=== PATIENT | male | born 1935 | race American Indian/Alaskan Native ===

== ENCOUNTER 2018-04-04 08:08 | Inpatient (IN) | payer MEDICARE, OTHER ==
[2018-04-04] MEDS ORDERED: Sodium Chloride 0.9% 1,000 ML IV STA (08:32)
--- NOTE | 2018-04-04 08:36 | ED PDOC ---
Arrival/HPI - General Chief Complaint: GI Problem Time Seen by Provider: 04/04/18 08:27 Historian: Patient, [facility] - History of Present Illness Narrative History of Present Illness (Text): 04/04/18 08:29 83 year old male, whose PMH includes hypertension, atrial fibrilallation, and CVA (with right sided weakness), who presents to the emergency department for further evaluation on possible GI bleed. According to nurse Alem Haque from [facility], patient is a new resident that recently got d/c from hospital and noted patient to have copious vomiting x2 episodes of coffee ground-like emesis last night. The GI bleed was questionable by patient's relatives and they decided to transfer patient to [facility] for further eval. Patient states having mid- epigastric discomfort with unknown time frame. Patient denies fever, shortness of breath, chest pain, chills, urinary/bowel changes, or trauma. pt is here for further eval pt's without other complaints. PMD: Dr. Houston/[facility] ([facility]) Time/Duration: > week Symptom Onset: Gradual Symptom Course: Unchanged Activities at Onset: Rest Context: Home ([facility] resident) Past Medical History - Provider Review Nursing Documentation Reviewed: Yes - Travel History Have you recently traveled outside [place] w/in the past 3 mons?: No - Past History Past History: No Previous - Infectious Disease Hx of Infectious Diseases: None - Cardiac Hx Atrial Fibrillation: Yes Hx Hypertension: Yes - Neurological HX Cerebrovascular Accident: Yes - Psychiatric Hx Substance Use: No Family/Social History - Physician Review Nursing Documentation Reviewed: Yes Family/Social History: Unknown Family HX Smoking Status: Never Smoked Hx Alcohol Use: No Hx Substance Use: No Hx Substance Use Treatment: No Allergies/Home Meds Allergies/Adverse Reactions: Allergies No Known Allergies Allergy (Unverified 04/04/18 08:32) Home Medications: Home Meds Medication Instructions Recorded Confirmed Acetaminophen [Tylenol 325mg tab] 650 mg PO Q4 PRN 04/04/18 04/04/18 Apixaban [Eliquis] 2.5 mg PO DAILY 04/04/18 04/04/18 Aspirin [Aspirin Chewable] 81 mg PO DAILY 04/04/18 04/04/18 Atorvastatin [Lipitor] 40 mg PO DAILY 04/04/18 04/04/18 Clopidogrel [Plavix] 75 mg PO DAILY 04/04/18 04/04/18 Digoxin [Digitek] 125 mcg PO DAILY 04/04/18 04/04/18 Dutasteride [Avodart] 0.5 mg PO DAILY 04/04/18 04/04/18 Pantoprazole [Protonix Inj] 40 mg PO DAILY 04/04/18 04/04/18 Tamsulosin [Flomax] 0.4 mg PO DAILY 04/04/18 04/04/18 diltiaZEM [Cardizem] 60 mg PO DAILY 04/04/18 04/04/18 Review of Systems - Physician Review All systems were reviewed & negative as marked: Yes - Review of Systems Constitutional: absent: Fevers Eyes: Normal ENT: Normal Respiratory: absent: SOB Cardiovascular: absent: Chest Pain Gastrointestinal: Abdominal Pain (mid epigastric discomfort ), Nausea, Vomiting , Appetite Changes, Hematemesis Genitourinary Male: Normal Musculoskeletal: Normal Skin: Normal Neurological: Dizziness Endocrine: Normal Hemo/Lymphatic: Normal Psychiatric: Normal Physical Exam - Physical Exam Narrative Physical Exam (Text): 04/04/18 General: alert/awake, GCS = 15, oriented x 2 (not to date/time), resting in bed , uncomfortable, cooperative, interactive Head: NC/AT; mild bi-temporal wasting EYE: PERRLA, EOMI, sclera anicteric, no nystagmus, no photophobia Facial: WNL Oral: uvula/tongue are midline, no exudate/lesions, no drooling/stridor, no dysphonia; poor dentitions NECK: intact ROM, no midline tenderness, no nuchal rigidity, no meningeal signs Chest: CTA b/l, no w/r/r; no tachypenia, no accessory muscle use noted Cardiac: +S1, +S2, no m/r/r Abdominal: +decr BS, soft, mild diffuse lower abd distention/tenderness; mild diffuse epigastric tenderness, well nourished patient; no masses/rebound/ guarding/rigidity; no grullon's sign, no mcburney's point tenderness Rectal: no external hemorrhoids, no gross blood, No occult blood, GUAIC negative ext: intact ROM, strength 5-/5 grossly intact in all limbs, neurovasc intact b/l SKIN: cap refill < 1 sec, no ulcerations, no petechiae, no rashes NEURO: CNII-XII WNL, + slurr speech (prior CVA), oriented x 2 (not to date/time ) Psych: normal insight, normal affect Vital Signs Reviewed: Yes Vital Signs Temp Pulse Resp BP Pulse Ox 04/04/18 11:33 98.3 F 88 18 132/79 99 04/04/18 08:13 98.1 F 91 H 16 135/64 95 Temperature: Afebrile Blood Pressure: Normal Pulse: Regular Respiratory Rate: Normal Appearance: Positive for: Well-Appearing, Non-Toxic, Comfortable Pain Distress: None - Systems Exam Head: Present: Atraumatic, Normocephalic, Other (mild bi-temporal wasting) Medical Decision Making ED Course and Treatment: 04/04/18 Impression: coffee ground emesis, nausea/vomiting, epigastric pain 83 year old male with mid-epigastric discomfort and x2 episodes of ground coffee emesis Plan: -- Labs -- Chest X-ray -- Urinalysis -- Protonix, Zofran, and Sodium Chloride -- Reassess and disposition Progress Notes: pt is currently resting in bed, NAD + intermittent nausea and epigastric pain complaints [address] Atkinson, no reply, will attempt to contact her again 04/04/18 11:25 pt's son is at bedside made aware of pt's medical results agrees with admission Dr Atkinson is contacted, made aware, agrees with admission, would like to consult Dr Heaton for GI 1135 Dr Atkinson is currently at pt bedside Dr Atkinson recommended CT with PO contrast for the patient 04/04/18 13:32 pt can not tolerate liquids (due to prior CVA) will change CT order to include IV Re-evaluation Time: 11:34 Reassessment Condition: Improving,but remains with symptoms - Lab Interpretations Lab Results: 04/04/18 08:57 04/04/18 08:57 Lab Results 04/04/18 08:57: pO2 91 H, VBG pH 7.37, VBG pCO2 41.0, VBG HCO3 23.7, VBG Total CO2 25.0, VBG O2 Sat (Calc) 98.6 H, VBG Base Excess -1.5 L, VBG Potassium 5.5 H , Sodium 133.0, Chloride 102.0, Glucose 123 H, Lactate 1.8, FiO2 21.0, Venous Blood Potassium 5.5 H 04/04/18 08:57: Sodium 140, Chloride 103, Potassium 5.3 H, Carbon Dioxide 22, Anion Gap 20, BUN 29 H, Creatinine 1.9 H, Est GFR ( Amer) 41, Est GFR ( Non-Af Amer) 34, Random Glucose 119 H, Calcium 9.6, Magnesium 2.2, Total Bilirubin 0.6, AST 27, ALT 32, Alkaline Phosphatase 70, Total Protein 7.7, Albumin 4.3, Globulin 3.4, Albumin/Globulin Ratio 1.3, Lipase 52 04/04/18 08:57: PT 15.1 H, INR 1.31 H, APTT 21.4 L 04/04/18 08:57: WBC 10.0, RBC 4.65, Hgb 13.1 L, Hct 39.3 L, MCV 84.5, MCH 28.2, MCHC 33.3, RDW 13.6, Plt Count 351, MPV 9.5, Gran % 79.0 H, Lymph % (Auto) 7.5 L , [place] % (Auto) 13.1 H, Eos % (Auto) 0.3 L, Baso % (Auto) 0.1, Gran # 7.86 H, Lymph # (Auto) 0.8 L, [place] # (Auto) 1.3 H, Eos # (Auto) 0.0, Baso # (Auto) 0.01 04/04/18 08:30: Blood Type B POSITIVE, Antibody Screen Negative, BBK History Checked No verified bt I have reviewed the lab results: Yes Interpretation: Abnormal lab values (elevated creat, slightly elevated K) - RAD Interpretation Narrative RAD Interpretations (Text): 04/04/18 10:00 Chest X-ray: Creator : Pato Mills MD FINDINGS: LUNGS: No active pulmonary disease. PLEURA: No significant pleural effusion identified, no pneumothorax apparent. CARDIOVASCULAR: Mild cardiomegaly OSSEOUS STRUCTURES: No significant abnormalities. VISUALIZED UPPER ABDOMEN: Normal. OTHER FINDINGS: None. IMPRESSION: No active disease. 04/04/18 14:28 PROCEDURE: CT Abdomen and Pelvis with contrast HISTORY: mid abd pain COMPARISON: None. TECHNIQUE: Contrast dose: 150 cc of Visipaque Radiation dose: Total exam DLP = 906 mGy-cm. This CT exam was performed using one or more of the following dose reduction techniques: Automated exposure control, adjustment of the mA and/or kV according to patient size, and/or use of iterative reconstruction technique. 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 LIVER: Unremarkable. No gross lesion or ductal dilatation. GALLBLADDER AND BILE DUCTS: Unremarkable. PANCREAS: Unremarkable. No gross lesion or ductal dilatation. SPLEEN: Unremarkable. ADRENALS: Unremarkable. No mass. KIDNEYS AND URETERS: Unremarkable. No hydronephrosis. No solid mass. VASCULATURE: Unremarkable. No aortic aneurysm. BOWEL: Unremarkable. No obstruction. No gross mural thickening. APPENDIX: Normal appendix. PERITONEUM: Unremarkable. No free fluid. No free air. LYMPH NODES: Unremarkable. No enlarged lymph nodes. BLADDER: The bladder is distended. The bladder extends of to the level of the iliac crests REPRODUCTIVE: Unremarkable. BONES: No acute fracture. OTHER FINDINGS: None. IMPRESSION: No acute findings. Distention of the bladder Radiology Orders: 04/04/18 08:34 CHEST PORTABLE [RAD] Stat Machine Container Washer: Radiologist - EKG Interpretation EKG Interpretation (Text): 04/04/18 11:40 Atrial fib at 105 bpm, normal axis, no ectopy, inverted T in leads I, L, V3-6, no st changes, ABNL EKG; no old ekg to compare with Interpreted by ED Physician: Yes Type: 12 lead EKG Comparison: No previous EKG avail. - Medication Orders Current Medication Orders: Sodium Chloride (Sodium Chloride 0.9%) 1,000 mls @ 100 mls/hr IV .Q10H STA Stop: 04/04/18 18:31 Last Admin: 04/04/18 09:55 Dose: 100 mls/hr eMAR Start Stop Document 04/04/18 09:55 EWO (Rec: 04/04/18 09:55 [id number] Intravenous Solution Start Date 04/04/18 Start Time 09:55 Discontinued Medications Ondansetron HCl (Zofran Inj) 4 mg IVP STAT STA Stop: 04/04/18 08:33 Last Admin: 04/04/18 09:55 Dose: 4 mg IVP Administration Document 04/04/18 09:55 EWO (Rec: 04/04/18 09:55 [facility]-[id number]) Charges for Administration # of IVP Administrations 1 Pantoprazole Sodium (Protonix Inj) 40 mg IVP STAT STA Stop: 04/04/18 08:33 Last Admin: 04/04/18 09:55 Dose: 40 mg IVP Administration Document 04/04/18 09:55 [facility] (Rec: 04/04/18 09:55 [facility]-[id number]) Charges for Administration # of IVP Administrations 1 - Scribe Statement The provider has reviewed the documentation as recorded by the Scribe Marah Chaparro Provider Scribe Attestation: All medical record entries made by the Scribe were at my direction and personally dictated by me. I have reviewed the chart and agree that the record accurately reflects my personal performance of the history, physical exam, medical decision making, and the department course for this patient. I have also personally directed, reviewed, and agree with the discharge instructions and disposition. Disposition/Present on Arrival - Present on Arrival Any Indicators Present on Arrival: No History of DVT/PE: No History of Uncontrolled Diabetes: No Urinary Catheter: No History of Decub. Ulcer: No History Surgical Site Infection Following: None - Disposition Have Diagnosis and Disposition been Completed?: Yes Diagnosis: Epigastric pain, Nausea and vomiting, Weakness, Renal insufficiency, GI bleed, Urinary retention Disposition: HOSPITALIZED Disposition Time: 11:30 Patient Plan: Admission Patient Problems: Current Active Problems Problem Status Onset Epigastric pain Acute Nausea and vomiting Acute Weakness Acute Renal insufficiency Acute GI bleed Acute Condition: STABLE
[2018-04-04 09:07] LABS: VENOUS BLOOD GAS BASE EXCESS -1.5 mmol/L (0.0-2.0); VENOUS BLOOD GAS PO2 91 mm/Hg (30-55); VENOUS BLOOD PH 7.37 (7.32-7.43)
[2018-04-04 09:14] LABS: ALB/GLOB RATIO 1.3 (1.1-1.8); ALBUMIN 4.3 g/dL (3.0-4.8); CALCIUM 9.6 mg/dL (8.4-10.5)
[2018-04-04 09:15] LABS: BASO # 0.01 K/mm3 (0.0-2.0); BASO % 0.1 % (0.0-3.0); EOS % 0.3 % (1.5-5.0); GRAN # 7.86 (1.4-6.5); HEMOGLOBIN 13.1 g/dL (14.0-18.0); LYMPH # 0.8 (1.2-3.4); LYMPH % 7.5 % (22.0-35.0); MEAN CELL VOLUME 84.5 fl (80.0-105.0); MEAN CORPUSCULAR HEMOGLOBIN 28.2 pg (25.0-35.0); MEAN CORPUSCULAR HGB CONC 33.3 g/dl (31.0-37.0); MEAN PLATELET VOLUME 9.5 fl (7.0-11.0); MONO # 1.3 (0.1-0.6); MONO % 13.1 % (1.0-6.0); RBC 4.65 10^6/uL (3.5-6.1); RED CELL DISTRIBUTION WIDTH 13.6 % (11.5-14.5)
[2018-04-04 09:23] LABS: INR 1.31 (0.93-1.08); PARTIAL THROMBOPLASTIN TIME 21.4 Seconds (25.1-36.5); PROTHROMBIN TIME 15.1 SECONDS (9.4-12.5)
--- NOTE | 2018-04-04 09:54 | RAD ---
HISTORY: epigastric pain, vomiting COMPARISON: No prior. FINDINGS: LUNGS: No active pulmonary disease. PLEURA: No significant pleural effusion identified, no pneumothorax apparent. CARDIOVASCULAR: Mild cardiomegaly OSSEOUS STRUCTURES: No significant abnormalities. VISUALIZED UPPER ABDOMEN: Normal. OTHER FINDINGS: None. IMPRESSION: No active disease.
[2018-04-04] MEDS ORDERED: Iohexol 240 (50 ml) ONE (11:52)
[2018-04-04] MEDS ORDERED: Iodixanol 320 MG/ML 100 ML BOTTLE IV ONE (13:37)
--- NOTE | 2018-04-04 14:22 | CT ---
PROCEDURE: CT Abdomen and Pelvis with contrast HISTORY: mid abd pain COMPARISON: None. TECHNIQUE: Contrast dose: 150 cc of Visipaque Radiation dose: Total exam DLP = 906 mGy-cm. This CT exam was performed using one or more of the following dose reduction techniques: Automated exposure control, adjustment of the mA and/or kV according to patient size, and/or use of iterative reconstruction technique. 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 LIVER: Unremarkable. No gross lesion or ductal dilatation. GALLBLADDER AND BILE DUCTS: Unremarkable. PANCREAS: Unremarkable. No gross lesion or ductal dilatation. SPLEEN: Unremarkable. ADRENALS: Unremarkable. No mass. KIDNEYS AND URETERS: Unremarkable. No hydronephrosis. No solid mass. VASCULATURE: Unremarkable. No aortic aneurysm. BOWEL: Unremarkable. No obstruction. No gross mural thickening. APPENDIX: Normal appendix. PERITONEUM: Unremarkable. No free fluid. No free air. LYMPH NODES: Unremarkable. No enlarged lymph nodes. BLADDER: The bladder is distended. The bladder extends of to the level of the iliac crests REPRODUCTIVE: Unremarkable. BONES: No acute fracture. OTHER FINDINGS: None. IMPRESSION: No acute findings. Distention of the bladder
[2018-04-04 16:23] LABS: ARTERIAL BLOOD GAS HCO3 22.3 mmol/L (21-28); ARTERIAL BLOOD GAS O2 SAT 98.7 % (95-98); ARTERIAL BLOOD GAS PCO2 36 mm/Hg (35-45); ARTERIAL BLOOD GAS TCO2 23.4 mmol.L (22-28)
--- NOTE | 2018-04-04 16:47 | PCM.RRT ---
<Kendrick Worley - Last Filed: 04/04/18 16:42> ELEVATOR SERVICE TECHNICIAN Nurse Assessment - Situation Date: 04/04/18 Time ELEVATOR SERVICE TECHNICIAN was called: 16:02 ELEVATOR SERVICE TECHNICIAN Responder Arrival Time: 16:02 ELEVATOR SERVICE TECHNICIAN Location:: [address] [place] [address] Room Number: [id number] ELEVATOR SERVICE TECHNICIAN Reason for Call: Change in Mental Status ELEVATOR SERVICE TECHNICIAN Called By: RN - IV IV Inserted during ELEVATOR SERVICE TECHNICIAN?: No - Respiratory Oxygen Delivery Method: Room Air Received Nebulizer Treatments:: No Was the Patient Ventilated with Bag/Mask 100% O2?: No Secretions Suctioned?: No Was the Patient Intubated?: No Was the Patient Placed on a Ventilator?: No - Medication Medications Administered During ELEVATOR SERVICE TECHNICIAN: none - Diagnostic Test Ordered EKG: Yes CT Scan: Yes - Stat Labs Ordered ELEVATOR SERVICE TECHNICIAN Stat Labs Ordered: BMP, ABG CPR started during ELEVATOR SERVICE TECHNICIAN?: No - Evin Coma Scale Coma Scale Eye Opening: Spontaneous Coma Scale Motor: Obeys Commands Movement Coma Scale Verbal: Oriented - Time ELEVATOR SERVICE TECHNICIAN Ended Time ELEVATOR SERVICE TECHNICIAN Ended: 16:30 - Recommendations 5) ELEVATOR SERVICE TECHNICIAN Level of Care Recommendations: Transfer to Telemetry Notifications: Attending Physician, Consultations, Family or Designated Caregiver I.Reason for ELEVATOR SERVICE TECHNICIAN - A) Acute Change in Patient: (Select all that apply): Acute change in mental status Subjective: Upon receiving the patient from the ED the nurse states the patient was not respinding to her. When i came to the room with sternal rub the patient was responding and was able to follow commands. He was confused however. EKG at this time showed afib and possible dig tox. Dig level was ordered.ABG was done. Co2 and O2 as well as Ph was normal. Bmp was ordered as patient had slightly elevated K+ on admission. CT head was ordered. Patient transferred to tele. Vitals were stable the entire time. PMD as well as family were notified. <Modesta Greenfield - Last Filed: 04/05/18 16:08> ELEVATOR SERVICE TECHNICIAN Nurse Assessment - Vital Signs Vital Sign: Rapid Response Vital Sign Blood Pressure 131/73 Pulse Rate 99 Respiratory Rate 18 Temperature 98.2 F Oxygen Saturation 99 Attending/Attestation - Attestation I have personally seen and examined this patient.: Yes I have fully participated in the care of the patient.: Yes I have reviewed all pertinent clinical information, including history, physical exam and plan: Yes Notes (Text): 04/05/18 16:05 Patient was seen and examined with medical equipment sales . 83M with PMH of BPH that presented to ER from [place] for hematemsis was seen as he was found to be unresponsive.Patient is drowsy, able to follow verbal command.He is maintaining air way, and blood pressure is stable.he is not hypoglycemic or hypercapnic.We will get CT scan of head and will transfer patient to telemetry.We will monitor Neuro check.PMD has been informed by medical equipment sales
--- NOTE | 2018-04-04 16:52 | CARD ---
APPROVED REPORT EKG Measurement Heart [id number] <Conclusion> Atrial fibrillation with rapid ventricular response T wave abnormality, consider inferior ischemia or digitalis effect T wave abnormality, consider anterolateral ischemia or digitalis effect Abnormal ECG
--- NOTE | 2018-04-04 17:43 | CT ---
PROCEDURE: CT HEAD WITHOUT CONTRAST. HISTORY: Altered mental status. COMPARISON: None available. TECHNIQUE: Axial computed tomography images were obtained through the head/brain without intravenous contrast. Coronal and sagittal reconstructed images. Radiation dose: Total exam DLP = 816.55 mGy-cm. This CT exam was performed using one or more of the following dose reduction techniques: Automated exposure control, adjustment of the mA and/or kV according to patient size, and/or use of iterative reconstruction technique. FINDINGS: HEMORRHAGE: No intracranial hemorrhage. BRAIN: No mass effect or edema. Cortical and cerebellar atrophy, periventricular small vessel disease. This includes the wedge-shaped geographic defect in the left cerebellar hemisphere the sequela of prior cerebellar infarction. In addition multiple small lacunar infarcts bilaterally VENTRICLES: Unremarkable. No hydrocephalus. CALVARIUM: Unremarkable. PARANASAL SINUSES: Unremarkable as visualized. No significant inflammatory changes. MASTOID AIR CELLS: Unremarkable as visualized. No inflammatory changes. OTHER FINDINGS: None. IMPRESSION: No acute intracranial abnormalities. No significant findings to account for the clinical presentation. Additional benign and/or incidental findings described above.
[2018-04-04 17:49] LABS: CALCIUM 9.2 mg/dL (8.4-10.5)
[2018-04-04] MEDS ORDERED: Albuterol-Ipratrop 3 mg / 0.5 (3 ml) UD IH STA (17:53)
[2018-04-04] MEDS ORDERED: Dextrose 50% SYRINGE Inj (50 ml) IVP ONE (17:55)
[2018-04-04 17:56] VITALS: BMI 27.7
[2018-04-04] MEDS ORDERED: Insulin Regular 1 UNITS/0.01 ML ML IV ONE (17:57)
[2018-04-04] MEDS ORDERED: Pneumococcal 23-Valent Vaccine IM ONE (18:02)
--- NOTE | 2018-04-04 19:34 | CP.PCM.CON ---
<Oriana Rivera - Last Filed: 04/04/18 19:34> History of Present Illness - History of Present Illness History of Present Illness: Seen and examined at the bedside earlier this afternoon, chart reviewed. Request for GI consult is for GI bleed. HPI: This is a 83-year-old male from [facility], who has a past medical history of atrial fibrillation, CVA and hypertension. The patient was brought to the emergency room from [facility] for reports of vomiting coffee ground like emesis last night 2. The patient is easily arousable but is a poor historian he does complain of epigastric pain and nausea as per ER nurse no episodes of melena or further hematemesis. Patient had stool guaiac done which was negative. No reports of any fever, shortness of breath chest pains. As far as patient recalls he never had an endoscopy or colonoscopy. History obtained also obtained from medical chart and team. In review of medications patient is on aspirin, Eliquis,and Plavix. As per nursing patient is on a thick liquids. Past medical history: Hypertension, atrial fibrillation, CVA with right-sided weakness which Surgical history: Denies Allergies: No known drug allergies Social history: No history of smoking, EtOH or illicit drugs Family history: Unknown Medications: Reviewed as per list from long term significant for aspirin/ Eliquis/Plavix ROS: Systems reviewed with positive finding see HPI Past Patient History - Infectious Disease Hx of Infectious Diseases: None - Past Social History Smoking Status: Never Smoked - CARDIAC Hx Atrial Fibrillation: Yes Hx Hypertension: Yes - NEUROLOGICAL HX Cerebrovascular Accident: Yes - PSYCHIATRIC Hx Substance Use: No - SURGICAL HISTORY Hx Surgeries: No Meds Allergies/Adverse Reactions: Allergies Allergy/AdvReac Type Severity Reaction Status Date / Time No Known Allergies Allergy Unverified 04/04/18 08:32 - Medications Medications: Current Medications Sodium Chloride (Sodium Chloride 0.9%) 1,000 mls @ 100 mls/hr IV .Q10H STA Stop: 04/04/18 18:31 Last Admin: 04/04/18 09:55 Dose: 100 mls/hr Physical Exam - Constitutional Appears: No Acute Distress - Head Exam Head Exam: NORMOCEPHALIC - Eye Exam Eye Exam: Normal appearance. absent: Scleral icterus - ENT Exam ENT Exam: Mucous Membranes Moist - Neck Exam Neck exam: Positive for: Normal Inspection - Respiratory Exam Respiratory Exam: Decreased Breath Sounds, NORMAL BREATHING PATTERN. absent: Rales, Wheezes, Respiratory Distress - Cardiovascular Exam Cardiovascular Exam: +S1, +S2 - GI/Abdominal Exam GI & Abdominal Exam: Distended, Normal Bowel Sounds, Soft, Tenderness ( epigastric). absent: Guarding, Rebound - Extremities Exam Extremities exam: Positive for: pedal pulses present. 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 minimal weakness noted to right arm - Neurological Exam Neurological exam: Alert (easily arousable and aware of surroundings, not much of a historian) Results - Vital Signs Recent Vital Signs: Last Vital Signs Temp 98.6 F 04/04/18 13:06 Pulse 88 04/04/18 13:06 Resp 18 04/04/18 13:06 BP 134/89 04/04/18 13:06 Pulse Ox 97 04/04/18 13:06 - Labs Result Diagrams: 04/04/18 08:57 04/04/18 17:21 Assessment & Plan - Assessment and Plan (Free Text) Assessment: Assessment: Coffee ground emesis, differentials consider is peptic ulcer disease, angiodysplasia CVA with right-sided weakness Atrial fibrillation Hypertension Hyperkalemia Plan: Nothing by mouth, continue IVF continue Protonix IV daily CT scan of abdomen and pelvis, report was reviewed, no acute findings Trend H&H and monitor for GI bleed Patient may benefit from EGD when optimal,patient on Elquis/Plavix. Will monitor closely. Thank you for this consult and for allowing us to participate in your patient's care, further recommendations based upon clinical course. Seen and discussed with Dr. Heaton. <Clark Heaton V - Last Filed: 04/05/18 02:42> Meds - Medications Medications: Current Medications Albuterol/Ipratropium (Duoneb 3 Mg/0.5 Mg (3 Ml) Ud) 3 ml IH [id number] [facility] Last Admin: 04/04/18 21:00 Dose: 3 ml Bisacodyl (Dulcolax) 10 mg RC ONCE ONE Stop: 04/05/18 07:12 Docusate Sodium (Colace) 100 mg PO BID [facility] Dextrose/Sodium Chloride (Dextrose 5%/0.45% Ns 1000 Ml) 1,000 mls @ 100 mls/hr IV .Q10H [facility] Last Admin: 04/04/18 19:37 Dose: 100 mls/hr Pantoprazole Sodium (Protonix Inj) 40 mg IVP DAILY [facility] Results - Vital Signs Recent Vital Signs: Last Vital Signs Temp 98.0 F 04/05/18 00:01 Pulse 108 H 04/05/18 00:01 Resp 20 04/05/18 00:01 BP 130/73 04/05/18 00:01 Pulse Ox 99 04/04/18 19:00 - Labs Result Diagrams: 04/04/18 19:35 04/04/18 19:35 Labs: Laboratory Results - last 24 hr 04/04/18 04/04/18 04/04/18 16:05 16:15 17:21 WBC RBC Hgb Hct MCV MCH MCHC RDW Plt Count MPV Gran % Lymph % (Auto) [place] % (Auto) Eos % (Auto) Baso % (Auto) Gran # Lymph # (Auto) [place] # (Auto) Eos # (Auto) Baso # (Auto) pCO2 36 pO2 84.0 HCO3 22.3 ABG pH 7.40 ABG Total CO2 23.4 ABG O2 Saturation 98.7 H ABG Base Excess -2.1 L ABG Potassium 4.9 Sodium 134.0 Chloride 107.0 Glucose 99 Lactate 0.8 FiO2 21.0 Potassium Carbon Dioxide Anion Gap BUN Creatinine Est GFR ( Amer) Est GFR (Non-Af Amer) POC Glucose (mg/dL) 110 Random Glucose Calcium Total Bilirubin AST ALT Alkaline Phosphatase Total Protein Albumin Globulin Albumin/Globulin Ratio Arterial Blood Potassium 4.9 Digoxin Blood Type Confirm B POSITIVE 04/04/18 04/04/18 04/04/18 17:21 17:21 19:35 WBC 8.9 RBC 4.31 Hgb 12.1 L Hct 37.0 L MCV 85.8 MCH 28.1 MCHC 32.7 RDW 13.8 Plt Count 298 MPV 9.3 Gran % 70.1 H Lymph % (Auto) 13.8 L [place] % (Auto) 15.3 H Eos % (Auto) 0.7 L Baso % (Auto) 0.1 Gran # 6.22 Lymph # (Auto) 1.2 [place] # (Auto) 1.4 H Eos # (Auto) 0.1 Baso # (Auto) 0.01 pCO2 pO2 HCO3 ABG pH ABG Total CO2 ABG O2 Saturation ABG Base Excess ABG Potassium Sodium 140 Chloride 104 Glucose Lactate FiO2 Potassium 5.7 H* Carbon Dioxide 25 Anion Gap 17 BUN 35 H Creatinine 2.5 H Est GFR ( Amer) 30 Est GFR (Non-Af Amer) 25 POC Glucose (mg/dL) Random Glucose 95 Calcium 9.2 Total Bilirubin AST ALT Alkaline Phosphatase Total Protein Albumin Globulin Albumin/Globulin Ratio Arterial Blood Potassium Digoxin 1.1 Blood Type Confirm 04/04/18 19:35 WBC RBC Hgb Hct MCV MCH MCHC RDW Plt Count MPV Gran % Lymph % (Auto) [place] % (Auto) Eos % (Auto) Baso % (Auto) Gran # Lymph # (Auto) [place] # (Auto) Eos # (Auto) Baso # (Auto) pCO2 pO2 HCO3 ABG pH ABG Total CO2 ABG O2 Saturation ABG Base Excess ABG Potassium Sodium 144 Chloride 106 Glucose Lactate FiO2 Potassium 4.2 Carbon Dioxide 24 Anion Gap 18 BUN 34 H Creatinine 2.4 H Est GFR ( Amer) 31 Est GFR (Non-Af Amer) 26 POC Glucose (mg/dL) Random Glucose 65 L Calcium 9.4 Total Bilirubin 0.7 AST 21 ALT 31 Alkaline Phosphatase 61 Total Protein 6.7 Albumin 3.7 Globulin 3.1 Albumin/Globulin Ratio 1.2 Arterial Blood Potassium Digoxin Blood Type Confirm Attending/Attestation - Attestation I have personally seen and examined this patient.: Yes I have fully participated in the care of the patient.: Yes I have reviewed all pertinent clinical information: Yes Notes (Text): maryanne 04/05/18 02:42
[2018-04-04] MEDS: Dextrose 5%/0.45% NS 1,000 ML IV SCH (19:37)
[2018-04-04 19:43] LABS: BASO # 0.01 K/mm3 (0.0-2.0); BASO % 0.1 % (0.0-3.0); EOS # 0.1 (0.0-0.7); EOS % 0.7 % (1.5-5.0); GRAN # 6.22 (1.4-6.5); GRAN % 70.1 % (50.0-68.0); HEMOGLOBIN 12.1 g/dL (14.0-18.0); LYMPH # 1.2 (1.2-3.4); LYMPH % 13.8 % (22.0-35.0); MEAN CELL VOLUME 85.8 fl (80.0-105.0); MEAN CORPUSCULAR HEMOGLOBIN 28.1 pg (25.0-35.0); MEAN CORPUSCULAR HGB CONC 32.7 g/dl (31.0-37.0); MEAN PLATELET VOLUME 9.3 fl (7.0-11.0); MONO # 1.4 (0.1-0.6); MONO % 15.3 % (1.0-6.0); RBC 4.31 10^6/uL (3.5-6.1); RED CELL DISTRIBUTION WIDTH 13.8 % (11.5-14.5); WHITE BLOOD COUNT 8.9 10^3/ul (4.5-11.0)
[2018-04-04 19:50] LABS: ALB/GLOB RATIO 1.2 (1.1-1.8); ALBUMIN 3.7 g/dL (3.0-4.8); CALCIUM 9.4 mg/dL (8.4-10.5)
--- NOTE | 2018-04-04 20:07 | CARD ---
APPROVED REPORT EKG Measurement Heart [id number] <Conclusion> Atrial fibrillation with rapid ventricular response T wave abnormality, consider inferior ischemia or digitalis effect T wave abnormality, consider anterolateral ischemia or digitalis effect Abnormal ECG
[2018-04-04] MEDS: Albuterol-Ipratrop 3 mg / 0.5 (3 ml) UD IH SCH (21:00)
--- NOTE | 2018-04-04 21:45 | CP.PCM.CON ---
<Thompson Cole - Last Filed: 04/04/18 21:41> History of Present Illness - History of Present Illness History of Present Illness: ICU Consult Note - Priyanka Cole PGY2 HPI: Patient is a 83 year-old male with past medical history of atrial fibrillation, CVA, hypertension that presented from [facility] with report of coffee-ground emesis for 2 nights prior to admission. Patient is a poor historian however arousable. On arrival to the ED, patient was noted to have a hemoglobin of 13.1, blood pressure of 135/64 and heart rate of 91bpm. Stool guiac was noted to be negative. During the day patient had a rapid response called due to altered mental status. An ABG was reviewed and revealed no abnormalities. Head CT was negative for acute intracranial abnormalities. Patient was subsequently transferred to telemetry for close monitoring. Patient had reportedly complained of epigastric pain and nausea. 12point ROS limited due to patient status PMH: as stated above PSH: denies Allergies: NKDA Family Hx: unknown Social Hx: no history of alcohol, tobacco or illicit drug use; lives in [facility] PMD: Dr. Atkinson Past Patient History - Infectious Disease Hx of Infectious Diseases: None - Past Social History Smoking Status: Never Smoked - CARDIAC Hx Atrial Fibrillation: Yes Hx Hypertension: Yes - PULMONARY Hx Respiratory Disorders: No - NEUROLOGICAL HX Cerebrovascular Accident: Yes - INTEGUMENTARY Hx Dermatological Problems: Yes Other/Comment: rle +1 pitting edema/ ble dry multiple discolorations to skin - MUSCULOSKELETAL/RHEUMATOLOGICAL Hx Falls: No - GASTROINTESTINAL Hx Gastroesophageal Reflux: Yes HX Swallowing Problems: Yes (can't tolerated liquids) Other/Comment: diet nectar/thickit - GENITOURINARY/GYNECOLOGICAL Hx Incontinence: Yes (urine and stool) Hx Prostate Problems: Yes (bph) - PSYCHIATRIC Hx Substance Use: No - SURGICAL HISTORY Hx Surgeries: No Meds Allergies/Adverse Reactions: Allergies Allergy/AdvReac Type Severity Reaction Status Date / Time No Known Allergies Allergy Unverified 04/04/18 08:32 - Medications Medications: Current Medications Albuterol/Ipratropium (Duoneb 3 Mg/0.5 Mg (3 Ml) Ud) 3 ml IH [id number] [facility] Last Admin: 04/04/18 21:00 Dose: 3 ml Dextrose/Sodium Chloride (Dextrose 5%/0.45% Ns 1000 Ml) 1,000 mls @ 100 mls/hr IV .Q10H [facility] Last Admin: 04/04/18 19:37 Dose: 100 mls/hr Pantoprazole Sodium (Protonix Inj) 40 mg IVP DAILY [facility] Physical Exam - Constitutional Appears: No Acute Distress - Head Exam Head Exam: ATRAUMATIC, NORMOCEPHALIC - Eye Exam Eye Exam: EOMI, PERRL - ENT Exam ENT Exam: Mucous Membranes Moist - Respiratory Exam Respiratory Exam: Decreased Breath Sounds. absent: Rales, Rhonchi, Wheezes - Cardiovascular Exam Cardiovascular Exam: Irregular Rhythm, +S1, +S2. absent: Gallop, JVD, Rubs - GI/Abdominal Exam GI & Abdominal Exam: Soft. absent: Distended, Firm, Guarding, Rigid, Tenderness - Extremities Exam Extremities exam: Positive for: normal inspection. Negative for: tenderness - Neurological Exam Additional comments: arousable; oriented x2 - Skin Skin Exam: Dry, Intact, Normal Color, Warm Results - Vital Signs Recent Vital Signs: Last Vital Signs Temp 98.7 F 04/04/18 19:00 Pulse 63 04/04/18 19:00 Resp 16 04/04/18 19:00 BP 141/74 04/04/18 19:00 Pulse Ox 99 04/04/18 19:00 - Labs Result Diagrams: 04/04/18 19:35 04/04/18 19:35 Labs: Laboratory Results - last 24 hr 04/04/18 04/04/18 04/04/18 16:05 16:15 17:21 WBC RBC Hgb Hct MCV MCH MCHC RDW Plt Count MPV Gran % Lymph % (Auto) [place] % (Auto) Eos % (Auto) Baso % (Auto) Gran # Lymph # (Auto) [place] # (Auto) Eos # (Auto) Baso # (Auto) pCO2 36 pO2 84.0 HCO3 22.3 ABG pH 7.40 ABG Total CO2 23.4 ABG O2 Saturation 98.7 H ABG Base Excess -2.1 L ABG Potassium 4.9 Sodium 134.0 Chloride 107.0 Glucose 99 Lactate 0.8 FiO2 21.0 Potassium Carbon Dioxide Anion Gap BUN Creatinine Est GFR ( Amer) Est GFR (Non-Af Amer) POC Glucose (mg/dL) 110 Random Glucose Calcium Total Bilirubin AST ALT Alkaline Phosphatase Total Protein Albumin Globulin Albumin/Globulin Ratio Arterial Blood Potassium 4.9 Digoxin Blood Type Confirm B POSITIVE 04/04/18 04/04/18 04/04/18 17:21 17:21 19:35 WBC 8.9 RBC 4.31 Hgb 12.1 L Hct 37.0 L MCV 85.8 MCH 28.1 MCHC 32.7 RDW 13.8 Plt Count 298 MPV 9.3 Gran % 70.1 H Lymph % (Auto) 13.8 L [place] % (Auto) 15.3 H Eos % (Auto) 0.7 L Baso % (Auto) 0.1 Gran # 6.22 Lymph # (Auto) 1.2 [place] # (Auto) 1.4 H Eos # (Auto) 0.1 Baso # (Auto) 0.01 pCO2 pO2 HCO3 ABG pH ABG Total CO2 ABG O2 Saturation ABG Base Excess ABG Potassium Sodium 140 Chloride 104 Glucose Lactate FiO2 Potassium 5.7 H* Carbon Dioxide 25 Anion Gap 17 BUN 35 H Creatinine 2.5 H Est GFR ( Amer) 30 Est GFR (Non-Af Amer) 25 POC Glucose (mg/dL) Random Glucose 95 Calcium 9.2 Total Bilirubin AST ALT Alkaline Phosphatase Total Protein Albumin Globulin Albumin/Globulin Ratio Arterial Blood Potassium Digoxin 1.1 Blood Type Confirm 04/04/18 19:35 WBC RBC Hgb Hct MCV MCH MCHC RDW Plt Count MPV Gran % Lymph % (Auto) [place] % (Auto) Eos % (Auto) Baso % (Auto) Gran # Lymph # (Auto) [place] # (Auto) Eos # (Auto) Baso # (Auto) pCO2 pO2 HCO3 ABG pH ABG Total CO2 ABG O2 Saturation ABG Base Excess ABG Potassium Sodium 144 Chloride 106 Glucose Lactate FiO2 Potassium 4.2 Carbon Dioxide 24 Anion Gap 18 BUN 34 H Creatinine 2.4 H Est GFR ( Amer) 31 Est GFR (Non-Af Amer) 26 POC Glucose (mg/dL) Random Glucose 65 L Calcium 9.4 Total Bilirubin 0.7 AST 21 ALT 31 Alkaline Phosphatase 61 Total Protein 6.7 Albumin 3.7 Globulin 3.1 Albumin/Globulin Ratio 1.2 Arterial Blood Potassium Digoxin Blood Type Confirm Assessment & Plan - Assessment and Plan (Free Text) Plan: 83yo male with history of atrial fibrillation, CVA, hypertension presents from [facility] with report of coffee-ground emesis 1. Altered mental status 2. ERIKA on CKD 3. Atrial fibrillation 4. Constipation 5. Urinary retention 6. Hypertension 7. Hx of CVA -Patient is presently hemodynamically stable and protecting his airway; does not require ICU level care at this present time -Case discussed with GI, Dr. 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 Levi <Amita ARREOLA,[facility] - Last Filed: 04/05/18 10:07> Meds - Medications Medications: Current Medications Albuterol/Ipratropium (Duoneb 3 Mg/0.5 Mg (3 Ml) Ud) 3 ml IH [id number] [facility] Last Admin: 04/05/18 08:03 Dose: 3 ml Dextrose/Sodium Chloride (Dextrose 5%/0.45% Ns 1000 Ml) 1,000 mls @ 100 mls/hr IV .Q10H [facility] Last Admin: 04/04/18 19:37 Dose: 100 mls/hr Pantoprazole Sodium (Protonix Inj) 40 mg IVP DAILY [facility] Last Admin: 04/05/18 09:19 Dose: 40 mg Results - Vital Signs Recent Vital Signs: Last Vital Signs Temp 98.5 F 04/05/18 05:56 Pulse 58 L 04/05/18 05:56 Resp 20 04/05/18 05:56 BP 129/81 04/05/18 05:56 Pulse Ox 95 04/05/18 05:56 - Labs Result Diagrams: 04/05/18 07:30 04/05/18 07:30 Labs: Laboratory Results - last 24 hr 04/04/18 04/04/18 04/04/18 16:05 16:15 17:21 WBC RBC Hgb Hct MCV MCH MCHC RDW Plt Count MPV Gran % Lymph % (Auto) [place] % (Auto) Eos % (Auto) Baso % (Auto) Gran # Lymph # (Auto) [place] # (Auto) Eos # (Auto) Baso # (Auto) pCO2 36 pO2 84.0 HCO3 22.3 ABG pH 7.40 ABG Total CO2 23.4 ABG O2 Saturation 98.7 H ABG Base Excess -2.1 L ABG Potassium 4.9 Sodium 134.0 Chloride 107.0 Glucose 99 Lactate 0.8 FiO2 21.0 Potassium Carbon Dioxide Anion Gap BUN Creatinine Est GFR ( Amer) Est GFR (Non-Af Amer) POC Glucose (mg/dL) 110 Random Glucose Calcium Total Bilirubin AST ALT Alkaline Phosphatase Total Protein Albumin Globulin Albumin/Globulin Ratio Arterial Blood Potassium 4.9 Digoxin Blood Type Confirm B POSITIVE 04/04/18 04/04/18 04/04/18 17:21 17:21 19:35 WBC 8.9 RBC 4.31 Hgb 12.1 L Hct 37.0 L MCV 85.8 MCH 28.1 MCHC 32.7 RDW 13.8 Plt Count 298 MPV 9.3 Gran % 70.1 H Lymph % (Auto) 13.8 L [place] % (Auto) 15.3 H Eos % (Auto) 0.7 L Baso % (Auto) 0.1 Gran # 6.22 Lymph # (Auto) 1.2 [place] # (Auto) 1.4 H Eos # (Auto) 0.1 Baso # (Auto) 0.01 pCO2 pO2 HCO3 ABG pH ABG Total CO2 ABG O2 Saturation ABG Base Excess ABG Potassium Sodium 140 Chloride 104 Glucose Lactate FiO2 Potassium 5.7 H* Carbon Dioxide 25 Anion Gap 17 BUN 35 H Creatinine 2.5 H Est GFR ( Amer) 30 Est GFR (Non-Af Amer) 25 POC Glucose (mg/dL) Random Glucose 95 Calcium 9.2 Total Bilirubin AST ALT Alkaline Phosphatase Total Protein Albumin Globulin Albumin/Globulin Ratio Arterial Blood Potassium Digoxin 1.1 Blood Type Confirm 04/04/18 04/05/18 04/05/18 19:35 07:30 07:30 WBC 6.2 D RBC 3.93 Hgb 11.0 L Hct 33.9 L MCV 86.3 MCH 28.0 MCHC 32.4 RDW 13.9 Plt Count 293 MPV 9.3 Gran % 61.0 Lymph % (Auto) 25.5 [place] % (Auto) 11.1 H Eos % (Auto) 1.9 Baso % (Auto) 0.5 Gran # 3.80 Lymph # (Auto) 1.6 [place] # (Auto) 0.7 H Eos # (Auto) 0.1 Baso # (Auto) 0.03 pCO2 pO2 HCO3 ABG pH ABG Total CO2 ABG O2 Saturation ABG Base Excess ABG Potassium Sodium 144 144 Chloride 106 106 Glucose Lactate FiO2 Potassium 4.2 4.8 Carbon Dioxide 24 27 Anion Gap 18 16 BUN 34 H 25 H Creatinine 2.4 H 1.6 H Est GFR ( Amer) 31 50 Est GFR (Non-Af Amer) 26 41 POC Glucose (mg/dL) Random Glucose 65 L 97 Calcium 9.4 9.0 Total Bilirubin 0.7 0.5 AST 21 23 ALT 31 28 Alkaline Phosphatase 61 56 Total Protein 6.7 6.3 Albumin 3.7 3.3 Globulin 3.1 3.0 Albumin/Globulin Ratio 1.2 1.1 Arterial Blood Potassium Digoxin Blood Type Confirm Attending/Attestation - Attestation I have personally seen and examined this patient.: Yes I have fully participated in the care of the patient.: Yes I have reviewed all pertinent clinical information: Yes Notes (Text): -I agree with the above ICU consult note completed by the resident physician. -Patient is hemodynamically stable and A&Ox3 (with only intermittent confusion) and therefore does not require ICU level of care at this time. -Please feel free to re-consult if his condition deteriorates. -Thank you Critical Care Time Spent: 30 minutes
--- NOTE | 2018-04-04 22:57 | CP.PCM.CON ---
<Sushma Jay - Last Filed: 04/04/18 22:52> History of Present Illness - History of Present Illness History of Present Illness: General Surgery consult note for Dr. Dave Consulted for: fecal impaction History is very limited because patient has altered mental status and there is no family at bedside. History gleaned from chart and nursing. Patient is an 83M with PMH of BPH and several other comorbidities who was sent to the ER from a [facility] for hematemesis. Patient has had no hematemesis here at the hospital. Stool guaic was negative. Patient underwent a CT scan of the abdomen which revealed a severely distended bladder, large quantity of stool in the colon proximal and distal to the bladder with compression of the sigmoid colon as it passed behind the bladder. Truong was inserted with large amount of urine output. General surgery was consulted by GI--Dr. Heaton--to disimpact the patient's rectum. Patient is difficult to communicate with but denies any current abdominal pain or nausea. Patient states his last BM was yesterday. Pmh: CVA, HTN, GERD, BPH, afib PSH: unknown ALL: NKDA Review of Systems - Review of Systems Systems not reviewed;Unavailable: Altered Mental Status Past Patient History - Infectious Disease Hx of Infectious Diseases: None - Past Medical History & Family History Past Medical History?: Yes Pertinent Family History: Patient PMH gleaned from chart, and family history not reviewed d/t patient's altered mental status. - Past Social History Smoking Status: Never Smoked - CARDIAC Hx Atrial Fibrillation: Yes Hx Hypertension: Yes - PULMONARY Hx Respiratory Disorders: No - NEUROLOGICAL HX Cerebrovascular Accident: Yes - INTEGUMENTARY Hx Dermatological Problems: Yes Other/Comment: rle +1 pitting edema/ ble dry multiple discolorations to skin - MUSCULOSKELETAL/RHEUMATOLOGICAL Hx Falls: No - GASTROINTESTINAL Hx Gastroesophageal Reflux: Yes HX Swallowing Problems: Yes (can't tolerated liquids) Other/Comment: diet nectar/thickit - GENITOURINARY/GYNECOLOGICAL Hx Incontinence: Yes (urine and stool) Hx Prostate Problems: Yes (bph) - PSYCHIATRIC Hx Substance Use: No - SURGICAL HISTORY Hx Surgeries: No Meds Allergies/Adverse Reactions: Allergies Allergy/AdvReac Type Severity Reaction Status Date / Time No Known Allergies Allergy Unverified 04/04/18 08:32 - Medications Medications: Current Medications Albuterol/Ipratropium (Duoneb 3 Mg/0.5 Mg (3 Ml) Ud) 3 ml IH [id number] [facility] Last Admin: 04/04/18 21:00 Dose: 3 ml Dextrose/Sodium Chloride (Dextrose 5%/0.45% Ns 1000 Ml) 1,000 mls @ 100 mls/hr IV .Q10H [facility] Last Admin: 04/04/18 19:37 Dose: 100 mls/hr Pantoprazole Sodium (Protonix Inj) 40 mg IVP DAILY [facility] Physical Exam - Constitutional Appears: Non-toxic, No Acute Distress, Confused - Head Exam Head Exam: ATRAUMATIC, NORMOCEPHALIC - Eye Exam Eye Exam: Normal appearance. absent: Conjunctival injection, Scleral icterus - ENT Exam ENT Exam: Mucous Membranes Moist - Respiratory Exam Respiratory Exam: NORMAL BREATHING PATTERN. absent: Accessory Muscle Use, Respiratory Distress - Cardiovascular Exam Additional comments: afib with RVR - GI/Abdominal Exam GI & Abdominal Exam: Soft, Tenderness (RLQ tenderness). absent: Distended, Mass , Rebound - Rectal Exam Rectal Exam: absent: Bloody Stool, Hemorrhoids Additional comments: soft light brown stool in the proximal rectal vault. No hard or impacted stool appreciated. Unable to remove much stool due to soft consistency. no palpable masses - Extremities Exam Extremities exam: Negative for: calf tenderness, pedal edema - Back Exam Back exam: NORMAL INSPECTION. absent: CVA tenderness (L), CVA tenderness (R) - Neurological Exam Neurological exam: Altered - Psychiatric Exam Psychiatric exam: Normal Affect, Normal Mood - Skin Skin Exam: Dry, Intact, Normal Color, Warm Additional comments: no pressure ulcers on the back or sacrum Results - Vital Signs Recent Vital Signs: Last Vital Signs Temp 98.7 F 04/04/18 19:00 Pulse 63 04/04/18 19:00 Resp 16 04/04/18 19:00 BP 141/74 04/04/18 19:00 Pulse Ox 99 04/04/18 19:00 - Labs Result Diagrams: 04/04/18 19:35 04/04/18 19:35 Labs: Laboratory Results - last 24 hr 04/04/18 04/04/18 04/04/18 16:05 16:15 17:21 WBC RBC Hgb Hct MCV MCH MCHC RDW Plt Count MPV Gran % Lymph % (Auto) [place] % (Auto) Eos % (Auto) Baso % (Auto) Gran # Lymph # (Auto) [place] # (Auto) Eos # (Auto) Baso # (Auto) pCO2 36 pO2 84.0 HCO3 22.3 ABG pH 7.40 ABG Total CO2 23.4 ABG O2 Saturation 98.7 H ABG Base Excess -2.1 L ABG Potassium 4.9 Sodium 134.0 Chloride 107.0 Glucose 99 Lactate 0.8 FiO2 21.0 Potassium Carbon Dioxide Anion Gap BUN Creatinine Est GFR ( Amer) Est GFR (Non-Af Amer) POC Glucose (mg/dL) 110 Random Glucose Calcium Total Bilirubin AST ALT Alkaline Phosphatase Total Protein Albumin Globulin Albumin/Globulin Ratio Arterial Blood Potassium 4.9 Digoxin Blood Type Confirm B POSITIVE 04/04/18 04/04/18 04/04/18 17:21 17:21 19:35 WBC 8.9 RBC 4.31 Hgb 12.1 L Hct 37.0 L MCV 85.8 MCH 28.1 MCHC 32.7 RDW 13.8 Plt Count 298 MPV 9.3 Gran % 70.1 H Lymph % (Auto) 13.8 L [place] % (Auto) 15.3 H Eos % (Auto) 0.7 L Baso % (Auto) 0.1 Gran # 6.22 Lymph # (Auto) 1.2 [place] # (Auto) 1.4 H Eos # (Auto) 0.1 Baso # (Auto) 0.01 pCO2 pO2 HCO3 ABG pH ABG Total CO2 ABG O2 Saturation ABG Base Excess ABG Potassium Sodium 140 Chloride 104 Glucose Lactate FiO2 Potassium 5.7 H* Carbon Dioxide 25 Anion Gap 17 BUN 35 H Creatinine 2.5 H Est GFR ( Amer) 30 Est GFR (Non-Af Amer) 25 POC Glucose (mg/dL) Random Glucose 95 Calcium 9.2 Total Bilirubin AST ALT Alkaline Phosphatase Total Protein Albumin Globulin Albumin/Globulin Ratio Arterial Blood Potassium Digoxin 1.1 Blood Type Confirm 04/04/18 19:35 WBC RBC Hgb Hct MCV MCH MCHC RDW Plt Count MPV Gran % Lymph % (Auto) [place] % (Auto) Eos % (Auto) Baso % (Auto) Gran # Lymph # (Auto) [place] # (Auto) Eos # (Auto) Baso # (Auto) pCO2 pO2 HCO3 ABG pH ABG Total CO2 ABG O2 Saturation ABG Base Excess ABG Potassium Sodium 144 Chloride 106 Glucose Lactate FiO2 Potassium 4.2 Carbon Dioxide 24 Anion Gap 18 BUN 34 H Creatinine 2.4 H Est GFR ( Amer) 31 Est GFR (Non-Af Amer) 26 POC Glucose (mg/dL) Random Glucose 65 L Calcium 9.4 Total Bilirubin 0.7 AST 21 ALT 31 Alkaline Phosphatase 61 Total Protein 6.7 Albumin 3.7 Globulin 3.1 Albumin/Globulin Ratio 1.2 Arterial Blood Potassium Digoxin Blood Type Confirm - Imaging and Cardiology CT scan - abdomen Status: Image reviewed by me, Report reviewed by me Assessment & Plan - Assessment and Plan (Free Text) Assessment: 83M with constipation and possible colonic obstruction d/t severe urinary retention Plan: Unable to disimpact patient d/t lack of impacted stool in the rectal vault CT scan showing constipation, mild colonic distention, but no acute surgical pathology No further surgical intervention recommend combination of stool softeners, enemas, and suppositories with physical therapy as possible Monitor bladder and bowel function Please reach out to the surgical team for any further questions or concern Will discuss with Dr. Dave, any further recs per him Sushma Jay, PGY2 <Kendall Dave - Last Filed: 04/05/18 22:30> Meds - Medications Medications: Current Medications Albuterol/Ipratropium (Duoneb 3 Mg/0.5 Mg (3 Ml) Ud) 3 ml IH [id number] [facility] Last Admin: 04/05/18 19:25 Dose: 3 ml Dextrose/Sodium Chloride (Dextrose 5%/0.45% Ns 1000 Ml) 1,000 mls @ 100 mls/hr IV .Q10H [facility] Last Admin: 04/05/18 15:31 Dose: 100 mls/hr Pantoprazole Sodium (Protonix Inj) 40 mg IVP DAILY [facility] Last Admin: 04/05/18 09:19 Dose: 40 mg Results - Vital Signs Recent Vital Signs: Last Vital Signs Temp 97 F L 04/05/18 17:19 Pulse 65 04/05/18 18:00 Resp 18 04/05/18 17:19 BP 135/80 04/05/18 17:19 Pulse Ox 98 04/05/18 17:19 - Labs Result Diagrams: 04/05/18 07:30 04/05/18 07:30 Labs: Laboratory Results - last 24 hr 04/05/18 04/05/18 07:30 07:30 WBC 6.2 D RBC 3.93 Hgb 11.0 L Hct 33.9 L MCV 86.3 MCH 28.0 MCHC 32.4 RDW 13.9 Plt Count 293 MPV 9.3 Gran % 61.0 Lymph % (Auto) 25.5 [place] % (Auto) 11.1 H Eos % (Auto) 1.9 Baso % (Auto) 0.5 Gran # 3.80 Lymph # (Auto) 1.6 [place] # (Auto) 0.7 H Eos # (Auto) 0.1 Baso # (Auto) 0.03 Sodium 144 Potassium 4.8 Chloride 106 Carbon Dioxide 27 Anion Gap 16 BUN 25 H Creatinine 1.6 H Est GFR ( Amer) 50 Est GFR (Non-Af Amer) 41 Random Glucose 97 Calcium 9.0 Total Bilirubin 0.5 AST 23 ALT 28 Alkaline Phosphatase 56 Total Protein 6.3 Albumin 3.3 Globulin 3.0 Albumin/Globulin Ratio 1.1 Attending/Attestation - Attestation I have personally seen and examined this patient.: Yes I have fully participated in the care of the patient.: Yes I have reviewed all pertinent clinical information: Yes Notes (Text): Pt was seen and examined at bedside Agree with above note and assessment Pt is [facility] resident with severe constipation Labs and radiology reviewed Ass: Sever constipation Plan : GI consult Enema Q6 hr Lactulose No acute surgical intervention required Plan d.w primary team in detail Risk and benefit explained in detail.
[2018-04-05] MEDS: Albuterol-Ipratrop 3 mg / 0.5 (3 ml) UD IH SCH ×4 (02:40→19:25)
--- NOTE | 2018-04-05 02:49 | HP ---
HISTORY OF PRESENT ILLNESS: The patient is an 83-year-old, recently had a stroke. He was in [facility] almost a week ago. He was transferred two days ago to [place] for rehab. I got a call this morning that he has coffee-ground vomiting and slight rectal bleeding, so he was transferred to emergency room for further evaluation. When I examined the patient, he seems to be confused, disoriented, mumbling with mild shortness of breath. PAST MEDICAL HISTORY: Significant for; 1. Hypertension. 2. AFib. 3. Mild dementia. 4. Status post CVA with right-sided weakness. According to son, he was walking up until 3 months ago; but after stroke, he has been bed-bound. 5. Hyperlipidemia. ALLERGIES: HE IS NOT ALLERGIC TO ANY MEDICATION. MEDICATIONS: In the long-term, he is on diltiazem 60 mg three times a day, Flomax 0.4 daily, Protonix 40 daily, Avodart 0.5 daily, Colace 200 daily, digoxin 0.125 mg daily, Plavix 75 daily, atorvastatin 40 mg daily, aspirin 81 daily, Eliquis 2.5 daily. SOCIAL HISTORY: He was living with his family, but he has been between [facility] and Rehab for the last 2 to 3 months. PHYSICAL EXAMINATION: GENERAL: On examination, he is lethargic, open eye on verbal command. VITAL SIGNS: He is afebrile, pulse 60, respirations 18, blood pressure 120/76. LUNGS: Bilateral decreased breath sound at bases. HEART: S1, S2 audible. ABDOMEN: Distended when I examined the patient. CT scan reveled bladder distension. He had Truong placed and 2 L of fluid was drained. LABORATORY EXAM: WBC is 10, hemoglobin 13.1, hematocrit 39.3, platelet of 351. PT 15.1, INR 1.31. Chemistry: Sodium 140, potassium 5.7, chloride 104, CO2 of 25, BUN 35, creatinine 2.5. Blood sugar of 95. Digoxin level is 1.1. DIAGNOSTIC DATA: CT scan of the head was done that shows no intracranial abnormality. EKG, atrial fibrillation with rapid ventricular response and T-wave abnormality. X-ray of chest was negative. CT scan of the abdomen and pelvis was done shows distension of the bladder. ASSESSMENT: 1. Upper gastrointestinal bleed. 2. Status post cerebrovascular accident. 3. Altered mental status. 4. Acute renal failure, post obstructive. 5. Hypertension. 6. Hyperlipidemia. PLAN: We will start patient on the IV fluid. Start him on Protonix. Patient was given D50 along with insulin. We will follow up his CBC and chem-7 stat. Renal consult by Dr. Garcia. We will follow up CBC and CMP. I spoke to patient's daughter, Lucía, who is the power of senior trial attorney and her phone number is [phone]. For now they want everything done and she declined DNR. They want to see if his condition deteriorates, then they might consider DNR. Merlin Atkinson MD
[2018-04-05 08:09] LABS: BASO # 0.03 K/mm3 (0.0-2.0); BASO % 0.5 % (0.0-3.0); EOS # 0.1 (0.0-0.7); EOS % 1.9 % (1.5-5.0); GRAN # 3.8 (1.4-6.5); LYMPH # 1.6 (1.2-3.4); LYMPH % 25.5 % (22.0-35.0); MEAN CELL VOLUME 86.3 fl (80.0-105.0); MEAN CORPUSCULAR HGB CONC 32.4 g/dl (31.0-37.0); MEAN PLATELET VOLUME 9.3 fl (7.0-11.0); MONO # 0.7 (0.1-0.6); MONO % 11.1 % (1.0-6.0); RBC 3.93 10^6/uL (3.5-6.1); RED CELL DISTRIBUTION WIDTH 13.9 % (11.5-14.5); WHITE BLOOD COUNT 6.2 10^3/ul (4.5-11.0)
[2018-04-05 08:17] LABS: ALB/GLOB RATIO 1.1 (1.1-1.8); ALBUMIN 3.3 g/dL (3.0-4.8)
[2018-04-05] MEDS ORDERED: Magnesium Citrate Oral SOL (300 ml) PO ONE (10:53)
--- NOTE | 2018-04-05 13:26 | CON ---
DATE: 04/05/2018 CONSULTATION CHIEF COMPLAINT: Weakness. HISTORY OF PRESENT ILLNESS: This is an 83-year-old male who recently had a CVA. He was in [facility] about a week ago. He was then in rehab. At rehab, the patient had coffee-ground emesis and rectal bleeding. He was transferred to the ER for further evaluation. In the emergency room, the patient was noted to be confused, disoriented, and dysarthric. He had mild shortness of breath. During his evaluation and treatment, he was noted to have a markedly distended bladder. A Truong catheter was then inserted with apparently over 1 L of urine drained and a consultation was requested. The patient is now seen in his room. He is awake and answering questions, although he does have a history of dementia and a prior CVA. He reports prior to the admission, he was voiding, although he was having some frequency and an apparently slow urinary stream. He denies any prior history of prostate problems. PAST MEDICAL HISTORY: Significant for hypertension, atrial fibrillation, CVA, dementia, and hyperlipidemia. MEDICATIONS FROM HOME: Included diltiazem, Flomax, Protonix, Avodart, digoxin, Plavix, Crestor, aspirin, and Eliquis. ALLERGIES: NO KNOWN DRUG ALLERGIES. FAMILY HISTORY: Noncontributory for this admission. He has been living with his family, but recently has been in rehab. SOCIAL HISTORY: No current smoking or EtOH use. REVIEW OF SYSTEMS: This is obtained from the patient and from the chart. A 12-point review of systems was asked to the patient and currently his only complaint is his weakness and unable to ambulate, and he is complaining of some pain from the Truong catheter. Other systems were asked and he denies any acute problems, but the patient is a poor historian. PHYSICAL EXAMINATION: GENERAL: The patient is awake and alert. He is answering questions, although he has some dysarthria. VITAL SIGNS: Show he is afebrile. Temperature of 98.5, pulse of 70, BP 130/80, respirations 20. NECK: Supple. There is no mass or adenopathy. CHEST: Reveals a slightly increased inspiratory effort. CARDIAC: Shows an irregular rhythm. There is no peripheral edema noted. ABDOMEN: His abdomen is soft, nontender, nondistended. There is no hepatosplenomegaly or costovertebral angle tenderness. : Phallus is normal with Truong catheter in place draining clear urine. Scrotum is normal. Testes bilaterally descended, nontender, no masses. Epididymides are normal. EXTREMITIES: Show no cyanosis or edema. LABORATORY EXAM: WBC count 6.2. Creatinine has come down to 1.6 from 2.5 yesterday. GFR is improved to 50. RADIOLOGIC EXAM: The patient had a CT scan of the abdomen and pelvis done from yesterday, which showed kidneys were unremarkable. No hydro-solid mass. Bladder was markedly distended to the level of the iliac crests. IMPRESSION AND PLAN: This is an 83-year-old male admitted with respiratory distress and weakness after cerebrovascular accident. Urologically, the patient does appear to have urinary retention, likely from benign prostatic hypertrophy. He appears to have been maintained on Flomax and finasteride. It is unclear who started these medications, but I would continue them at this time. I will need to discuss further plan regarding a possible voiding trial or possibly leaving the patient with an indwelling Truong catheter. If the patient is bed bound and nonambulatory, I would leave the Truong catheter in place and this can be changed monthly. If the patient is improving with a rehab after his CVA and he is able to stand and ambulate, then I would consider a repeat voiding trial. Given the large bladder distention which was noted along with the obstructive uropathy which appears to be improving, I would not plan a voiding trial for at least 3 to 4 weeks. If patient is going back to rehab, this can be done there or possibly a voiding trial can be done after he has completed his rehab depending on his physical condition. Thank you for allowing me to participate the care of this patient. We will follow him with you. Tay Gonzalez MD
--- NOTE | 2018-04-05 14:17 | CP.PCM.CON ---
History of Present Illness - History of Present Illness History of Present Illness: CONSULT FOR ARF 83M with PMH of BPH that presented to ER from [place] for hematemsis. Pt is unable to give any further history is obtained from chart and rn rehab. He had ERIKA and hyperkalemia on presentation. He had a CT revealing a severely distended bladder and had barry placed w/ > 1 L uop. His ERIKA is now improving. GI and surgery is seeing him re: disempaction. He otherwise has no complaints to me. ros: a full detailed ros is limited due to his dementia Pmh: CVA, HTN, GERD, BPH, afib, dementia PSH: unknown ALL: NKDA famhx: unaknown if ckd sochx : unknown -limited by dementia meds as below labs and imaging as below pe: vs as below gen: nad sclera anicteric op clear neck: supple cv: +s1+s2 no rub abd: soft distended no organomegaly lungs: cta b/l ext: trace edema neuro: A+Ox1 psych: flat affect skin no rash imp: ARF/ Hyperkalemia/ Obstructive uropathy / anemia plan: erika resolving post barry agree w/ 1/2 ns for possible post ob diuresis consider gu eval f/u surgery and gi. hgb stble k improved Past Patient History - Infectious Disease Hx of Infectious Diseases: None - Past Medical History & Family History Past Medical History?: Yes - Past Social History Smoking Status: Never Smoked - CARDIAC Hx Atrial Fibrillation: Yes Hx Hypertension: Yes - PULMONARY Hx Respiratory Disorders: No - NEUROLOGICAL HX Cerebrovascular Accident: Yes - INTEGUMENTARY Hx Dermatological Problems: Yes Other/Comment: rle +1 pitting edema/ ble dry multiple discolorations to skin - MUSCULOSKELETAL/RHEUMATOLOGICAL Hx Falls: No - GASTROINTESTINAL Hx Gastroesophageal Reflux: Yes HX Swallowing Problems: Yes (can't tolerated liquids) Other/Comment: diet nectar/thickit - GENITOURINARY/GYNECOLOGICAL Hx Incontinence: Yes (urine and stool) Hx Prostate Problems: Yes (bph) - PSYCHIATRIC Hx Substance Use: No - SURGICAL HISTORY Hx Surgeries: No Meds Allergies/Adverse Reactions: Allergies Allergy/AdvReac Type Severity Reaction Status Date / Time No Known Allergies Allergy Unverified 04/04/18 08:32 - Medications Medications: Current Medications Albuterol/Ipratropium (Duoneb 3 Mg/0.5 Mg (3 Ml) Ud) 3 ml IH [id number] [facility] Last Admin: 04/05/18 13:14 Dose: 3 ml Dextrose/Sodium Chloride (Dextrose 5%/0.45% Ns 1000 Ml) 1,000 mls @ 100 mls/hr IV .Q10H [facility] Last Admin: 04/04/18 19:37 Dose: 100 mls/hr Pantoprazole Sodium (Protonix Inj) 40 mg IVP DAILY [facility] Last Admin: 04/05/18 09:19 Dose: 40 mg Results - Vital Signs Recent Vital Signs: Last Vital Signs Temp 98 F 04/05/18 11:34 Pulse 68 04/05/18 11:34 Resp 16 04/05/18 11:34 BP 142/79 04/05/18 11:34 Pulse Ox 97 04/05/18 09:00 - Labs Result Diagrams: 04/05/18 07:30 04/05/18 07:30 Labs: Laboratory Results - last 24 hr 04/04/18 04/04/18 04/04/18 16:05 16:15 17:21 WBC RBC Hgb Hct MCV MCH MCHC RDW Plt Count MPV Gran % Lymph % (Auto) [place] % (Auto) Eos % (Auto) Baso % (Auto) Gran # Lymph # (Auto) [place] # (Auto) Eos # (Auto) Baso # (Auto) pCO2 36 pO2 84.0 HCO3 22.3 ABG pH 7.40 ABG Total CO2 23.4 ABG O2 Saturation 98.7 H ABG Base Excess -2.1 L ABG Potassium 4.9 Sodium 134.0 Chloride 107.0 Glucose 99 Lactate 0.8 FiO2 21.0 Potassium Carbon Dioxide Anion Gap BUN Creatinine Est GFR ( Amer) Est GFR (Non-Af Amer) POC Glucose (mg/dL) 110 Random Glucose Calcium Total Bilirubin AST ALT Alkaline Phosphatase Total Protein Albumin Globulin Albumin/Globulin Ratio Arterial Blood Potassium 4.9 Digoxin Blood Type Confirm B POSITIVE 04/04/18 04/04/18 04/04/18 17:21 17:21 19:35 WBC 8.9 RBC 4.31 Hgb 12.1 L Hct 37.0 L MCV 85.8 MCH 28.1 MCHC 32.7 RDW 13.8 Plt Count 298 MPV 9.3 Gran % 70.1 H Lymph % (Auto) 13.8 L [place] % (Auto) 15.3 H Eos % (Auto) 0.7 L Baso % (Auto) 0.1 Gran # 6.22 Lymph # (Auto) 1.2 [place]ell # (Auto) 1.4 H Eos # (Auto) 0.1 Baso # (Auto) 0.01 pCO2 pO2 HCO3 ABG pH ABG Total CO2 ABG O2 Saturation ABG Base Excess ABG Potassium Sodium 140 Chloride 104 Glucose Lactate FiO2 Potassium 5.7 H* Carbon Dioxide 25 Anion Gap 17 BUN 35 H Creatinine 2.5 H Est GFR ( Amer) 30 Est GFR (Non-Af Amer) 25 POC Glucose (mg/dL) Random Glucose 95 Calcium 9.2 Total Bilirubin AST ALT Alkaline Phosphatase Total Protein Albumin Globulin Albumin/Globulin Ratio Arterial Blood Potassium Digoxin 1.1 Blood Type Confirm 04/04/18 04/05/18 04/05/18 19:35 07:30 07:30 WBC 6.2 D RBC 3.93 Hgb 11.0 L Hct 33.9 L MCV 86.3 MCH 28.0 MCHC 32.4 RDW 13.9 Plt Count 293 MPV 9.3 Gran % 61.0 Lymph % (Auto) 25.5 [place]ell % (Auto) 11.1 H Eos % (Auto) 1.9 Baso % (Auto) 0.5 Gran # 3.80 Lymph # (Auto) 1.6 [place]ell # (Auto) 0.7 H Eos # (Auto) 0.1 Baso # (Auto) 0.03 pCO2 pO2 HCO3 ABG pH ABG Total CO2 ABG O2 Saturation ABG Base Excess ABG Potassium Sodium 144 144 Chloride 106 106 Glucose Lactate FiO2 Potassium 4.2 4.8 Carbon Dioxide 24 27 Anion Gap 18 16 BUN 34 H 25 H Creatinine 2.4 H 1.6 H Est GFR ( Amer) 31 50 Est GFR (Non-Af Amer) 26 41 POC Glucose (mg/dL) Random Glucose 65 L 97 Calcium 9.4 9.0 Total Bilirubin 0.7 0.5 AST 21 23 ALT 31 28 Alkaline Phosphatase 61 56 Total Protein 6.7 6.3 Albumin 3.7 3.3 Globulin 3.1 3.0 Albumin/Globulin Ratio 1.2 1.1 Arterial Blood Potassium Digoxin Blood Type Confirm
[2018-04-05] MEDS: Dextrose 5%/0.45% NS 1,000 ML IV SCH (15:31)
--- NOTE | 2018-04-05 16:16 | PN ---
DATE: 04/05/2018 SUBJECTIVE: The patient is 83 years old, seen and examined, much more awake and alert. States he is hungry and he wants to have some orange juice. No complaint of abdominal pain. OBJECTIVE: VITAL SIGNS: He is afebrile, pulse 58, respirations 20, blood pressure 129/81. LUNGS: Bilateral fair airflow. No rhonchi or crackle. HEART: S1 and S2 audible. ABDOMEN: Soft and nontender. No rebound. No guarding. NEUROLOGIC: He is awake and alert, able to communicate now. LABORATORY DATA: His sodium is 144, potassium 4.8, chloride 106, CO2 of 27. BUN 25, creatinine 1.6. Blood sugar of 97. Digoxin level is 1.1. CT scan of the brain is negative. CT scan of the abdomen and pelvis shows constipation and urinary retention. The patient has Truong catheter placed and almost a liter of fluid was drained. ASSESSMENT: 1. Atrial fibrillation. 2. History of cerebrovascular accident. 3. Acute renal failure, improving. PLAN: We will continue the patient on IV fluid. I will give him one dose of magnesium citrate. He is getting tap-water enema. His hyperkalemia has resolved. Start him on clear liquid until he relieves his constipation, then we will advance his diet. Request for physical therapy. We will follow up electrolyte in a.m. Merlin Atkinson MD
--- NOTE | 2018-04-05 21:37 | CON ---
DATE: 04/05/2018 CARDIOLOGY CONSULTATION (Dr. Malagon) HISTORY OF PRESENT ILLNESS: The patient is an 83-year-old male with history of peripheral vascular disease, CVA, chronic atrial fibrillation treated with anticoagulation. I assume he is also on Plavix because of his history of peripheral vascular disease. The patient is confused, but no chest pain noted. The patient presents with GI bleed. Currently, his only one thing in mind is that he is hungry, although, he has been kept n.p.o. PHYSICAL EXAMINATION: VITAL SIGNS: Blood pressure 142/79, the heart rate is atrial fibrillation in the 60s. NECK: Negative JVD. LUNGS: Without rales. HEART: Reveals S1 and S2. EXTREMITIES: Without edema. LABORATORY DATA: Hemoglobin is 11. Chemistries: BUN and creatinine is 25 and 1.6. IMPRESSION: 1. Gastrointestinal bleed. 2. Bleeding exacerbated by combination of anticoagulation and Plavix combo. 3. Chronic atrial fibrillation with a stable heart rate. 4. Peripheral vascular disease. 5. History of cerebrovascular accident. 6. Hypercholesterolemia. 7. Hypertension. PLAN: Given these findings, we will hold the clopidogrel as well as the Eliquis for now. The patient is pending GI workup. His atrial fibrillation heart rate is stable. On Saturday, we will have Dr. Malagon continue care for the patient. Stevie Tse MD
[2018-04-06] MEDS: Albuterol-Ipratrop 3 mg / 0.5 (3 ml) UD IH SCH ×4 (01:28→20:15)
--- NOTE | 2018-04-06 04:18 | CON ---
DATE: 04/05/2018 HISTORY OF PRESENT ILLNESS: This is an 83-year-old black male, [facility] and was in [facility] a week ago, and patient had coffee ground vomiting and transferred for further examination. Patient was found to be confused, called to evaluate the patient. 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 ALLERGIES: NOT ALLERGIC TO ANY MEDICATION. MEDICATIONS: Patient is on Diltiazem, Flomax, Protinex, Colace, digoxin, Plavix, statin, Eliquis, and aspirin. REVIEW OF SYSTEMS: Ten-point review of systems was negative. Mildly confused and knows his whereabouts. PHYSICAL EXAMINATION: HEENT: Normocephalic, atraumatic. NECK: Supple. NEUROLOGIC: Awake, oriented to self. Cranial nerves II through XII were tested. Pupils reactive. Residual weakness on the right side noted, but able to move all the extremities spontaneously. Deep tendon reflexes are 1+. Both plantars are downgoing. Sensory appears intact. Cerebellar: Gait deferred. IMPRESSION: Patient had mild dementia. Intermittent confusional state, superimposed and also past medical history of left hemispheric stroke with right residual weakness and also has a hypertension and acute renal failure, and workup in progress. Continue present management. We will follow up. Bob Win MD
[2018-04-06 07:37] LABS: BASO # 0.03 K/mm3 (0.0-2.0); BASO % 0.6 % (0.0-3.0); EOS # 0.2 (0.0-0.7); EOS % 4.4 % (1.5-5.0); GRAN # 2.85 (1.4-6.5); GRAN % 54.7 % (50.0-68.0); HEMOGLOBIN 11.3 g/dL (14.0-18.0); LYMPH # 1.4 (1.2-3.4); LYMPH % 26.1 % (22.0-35.0); MEAN CELL VOLUME 85.1 fl (80.0-105.0); MEAN CORPUSCULAR HEMOGLOBIN 28.5 pg (25.0-35.0); MEAN CORPUSCULAR HGB CONC 33.4 g/dl (31.0-37.0); MONO # 0.7 (0.1-0.6); MONO % 14.2 % (1.0-6.0); RBC 3.97 10^6/uL (3.5-6.1); RED CELL DISTRIBUTION WIDTH 13.5 % (11.5-14.5); WHITE BLOOD COUNT 5.2 10^3/ul (4.5-11.0)
[2018-04-06] MEDS: Dextrose 5%/0.45% NS 1,000 ML IV SCH (07:44)
[2018-04-06 07:49] LABS: ALBUMIN 3.2 g/dL (3.0-4.8); ALT/SGPT 27 U/L (7-56); AST/SGOT 16 U/L (17-59); BLOOD UREA NITROGEN 13 mg/dL (7-21); CALCIUM 8.7 mg/dL (8.4-10.5); GFR AFRICAN-AMERICAN > 60; GFR NON-AFRICAN AMERICAN > 60
--- NOTE | 2018-04-06 10:20 | CP.PCM.PN ---
Subjective - Date & Time of Evaluation Date of Evaluation: 04/06/18 Time of Evaluation: 10:19 - Subjective Subjective: RENAL: S: seen and examined resting comforably pe: vs as below gen: nad sclera anicteric op clear neck: supple cv: +s1+s2 no rub abd: soft distended no organomegaly lungs: cta b/l ext: trace edema neuro: A+Ox1 psych: flat affect skin no rash imp: ARF/ Hyperkalemia/ Obstructive uropathy / anemia plan: robert resolving post barry consider gu eval f/u surgery and gi. hgb stble k improved Objective - Vital Signs/Intake and Output Vital Signs (last 24 hours): Temp Pulse Resp BP Pulse Ox 98.4 F 107 H 19 162/91 H 100 04/06/18 06:00 04/06/18 06:00 04/06/18 06:00 04/06/18 06:00 04/06/18 06:00 Intake and Output: 04/06/18 04/06/18 06:59 18:59 Intake Total 1560 Output Total 1900 Balance -340 - Medications Medications: Current Medications Albuterol/Ipratropium (Duoneb 3 Mg/0.5 Mg (3 Ml) Ud) 3 ml IH [id number] MATA Last Admin: 04/06/18 09:17 Dose: 3 ml Pantoprazole Sodium (Protonix Inj) 40 mg IVP DAILY [facility] Last Admin: 04/06/18 09:12 Dose: 40 mg - Labs Labs: 04/06/18 07:00 04/06/18 07:00 PT 15.1 SECONDS (9.4-12.5) H 04/04/18 08:57 INR 1.31 (0.93-1.08) H 04/04/18 08:57 APTT 21.4 Seconds (25.1-36.5) L 04/04/18 08:57
--- NOTE | 2018-04-06 11:29 | PN ---
DATE: 04/06/2018 SUBJECTIVE: The patient has no complaints of any chest pain or shortness of breath. No headaches. PHYSICAL EXAMINATION: VITAL SIGNS: Temperature is 98.4, pulse of 107, blood pressure is 162/91, respirations 19. GENERAL: The patient is lying in bed, flat, comfortable. HEENT: No oral lesion. Anicteric sclerae. Moist mucosa. NECK: No JVD, adenopathy, or thyromegaly. CARDIOVASCULAR: S1 and S2, regular. No murmurs, rubs, or gallops. LUNGS: Clear to auscultation bilaterally. No wheeze, rales, or rhonchi. ABDOMEN: Bowel sounds are positive, soft, nontender and nondistended. EXTREMITIES: No cyanosis, clubbing or edema. LABORATORY DATA: White count of 5.2, hemoglobin 11.3. ASSESSMENT: 1. Upper gastrointestinal bleed. 2. Hypertension. 3. Benign prostatic hypertrophy. 4. Acute kidney injury. 5. Dyslipidemia. PLAN: The patient is currently comfortable, is on IV fluids. The patient's creatinine is 1.1. I will discontinue the patient's IV fluids at this point. He is on nebulizer treatment. He is on Protonix. He is on liquid diet. He is being followed by Dr. Heaton, I did speak to him this morning. The patient had urinary retention and had a Truong catheter placed. Winston Carmen MD
[2018-04-07] MEDS: Albuterol-Ipratrop 3 mg / 0.5 (3 ml) UD IH SCH ×4 (02:00→19:47)
[2018-04-07] MEDS: Magnesium Citrate Oral SOL (300 ml) PO ONE ×2 (12:14→14:07)
[2018-04-07] MEDS: POLYETHYLENE GLYCOL 3350 17 GM/Dose PACKET PO SCH ×2 (12:14→17:04)
--- NOTE | 2018-04-07 13:19 | PN ---
DATE: 04/07/2018 SUBJECTIVE: The patient is 83 years old, seen and examined, awake and alert, able to communicate, eating and tolerating. Does not have clear speech, mumbles. Able to comprehend few letters, but no evidence of nausea, vomiting. No diarrhea. PHYSICAL EXAMINATION: VITAL SIGNS: The patient is afebrile, pulse 90, respirations 20, blood pressure 125/84. LUNGS: Bilateral fair airflow. No rhonchi or crackle. HEART: S1 and S2 audible. ABDOMEN: Soft. Nontender. No rebound. No guarding. NEUROLOGICAL: The patient is awake and alert, able to communicate. LABORATORY EXAM: WBC is 5.2, hemoglobin 11, hematocrit 33, platelet of 309. Chemistry: Sodium 141, potassium 4.2, chloride 104, CO2 of 26, BUN 13, creatinine 1.1, blood sugar of 103. ASSESSMENT: 1. Status post urine retention secondary to constipation, pushing on bladder neck. 2. Atrial fibrillation. 3. Upper gastrointestinal bleed. 4. Dementia. 5. Status post cerebrovascular accident. 6. History of hypertension. PLAN: According to nurse, the patient is still constipated. We will start him on MiraLax and give him one dose of magnesium citrate again. We will start him on Eliquis. I spoke to Dr. Heaton. He states the patient is not actively bleeding and holding his hemoglobin. Endoscopy can be arranged as outpatient. We can discontinue telemetry since he is stable from cardiology point of view. Merlin Atkinson MD
[2018-04-07] MEDS: Digoxin 125 mcg (0.125 mg) Tab PO SCH (13:54)
--- NOTE | 2018-04-07 14:29 | CP.PCM.PN ---
<BryanAlyson - Last Filed: 04/07/18 17:04> Subjective - Date & Time of Evaluation Date of Evaluation: 04/07/18 Time of Evaluation: 12:00 - Subjective Subjective: PGY-2 GI progress note for Dr. Heaton's service Patient seen and examined at bedside. No acute distress. Patient states that he is feeling better. He denies abd pain, n/v, no overt bleeding. Patient is tolerating heart health diet Objective - Vital Signs/Intake and Output Vital Signs (last 24 hours): Temp Pulse Resp BP Pulse Ox 97.9 F 109 H 19 133/68 98 04/07/18 12:00 04/07/18 13:51 04/07/18 12:00 04/07/18 13:51 04/07/18 05:59 Intake and Output: 04/07/18 04/07/18 06:59 18:59 Intake Total 480 Output Total 1200 Balance -720 - Medications Medications: Current Medications Albuterol/Ipratropium (Duoneb 3 Mg/0.5 Mg (3 Ml) Ud) 3 ml IH [id number] [facility] Last Admin: 04/07/18 14:21 Dose: 3 ml Apixaban (Eliquis) 2.5 mg PO DAILY [facility] PRN Reason: Protocol Last Admin: 04/07/18 13:54 Dose: 2.5 mg Digoxin (Digoxin) 0.125 mg PO 1400 [facility] Last Admin: 04/07/18 13:54 Dose: 0.125 mg Diltiazem HCl (Cardizem) 60 mg PO QID [facility] Stop: 04/07/18 23:59 Last Admin: 04/07/18 13:51 Dose: 60 mg Diltiazem HCl (Cardizem Cd) 240 mg PO DAILY [facility] Pantoprazole Sodium (Protonix Inj) 40 mg IVP DAILY [facility] Last Admin: 04/07/18 09:38 Dose: 40 mg Polyethylene Glycol (Miralax) 17 gm PO BID [facility] Last Admin: 04/07/18 12:14 Dose: 17 gm - Labs Labs: 04/06/18 07:00 04/06/18 07:00 PT 15.1 SECONDS (9.4-12.5) H 04/04/18 08:57 INR 1.31 (0.93-1.08) H 04/04/18 08:57 APTT 21.4 Seconds (25.1-36.5) L 04/04/18 08:57 - Constitutional Appears: Well, No Acute Distress - Head Exam Head Exam: ATRAUMATIC, NORMAL INSPECTION, NORMOCEPHALIC - Eye Exam Eye Exam: EOMI, Normal appearance - ENT Exam ENT Exam: Mucous Membranes Moist - Respiratory Exam Respiratory Exam: Clear to Ausculation Bilateral, NORMAL BREATHING PATTERN. absent: Rhonchi, Wheezes, Respiratory Distress - Cardiovascular Exam Cardiovascular Exam: REGULAR RHYTHM, +S1, +S2. absent: Bradycardia, Tachycardia , Murmur - GI/Abdominal Exam GI & Abdominal Exam: Soft, Normal Bowel Sounds. absent: Distended, Firm, Guarding, Rigid, Tenderness, Hyperactive Bowel Sounds - Extremities Exam Extremities Exam: Normal Inspection. absent: Pedal Edema, Tenderness - Neurological Exam Neurological Exam: Alert, Awake, Oriented x3 - Skin Skin Exam: Dry, Intact, Normal Color, Warm Assessment and Plan - Assessment and Plan (Free Text) Assessment: 83yo male with history of atrial fibrillation on eliquis , CVA, hypertension presents f with report of coffee-ground emesis Coffee ground emesis, differentials consider is peptic ulcer disease, angiodysplasia CVA with right-sided weakness Atrial fibrillation Hypertension Hyperkalemia- resolved Plan: diet as tolerated continue Protonix daily CT scan of abdomen and pelvis, report was reviewed, no acute findings Trend H&H and monitor for GI bleed Patient may benefit from EGD as outpatient, patient on Elquis consider anemia workup continue to monitor for overt bleeding case reviewed and discussed with Dr. Heaton. <Clark Heaton V - Last Filed: 04/08/18 00:02> Objective - Vital Signs/Intake and Output Vital Signs (last 24 hours): Temp Pulse Resp BP Pulse Ox 98.5 F 91 H 20 123/79 99 04/07/18 22:28 04/07/18 22:28 04/07/18 22:28 04/07/18 22:28 04/07/18 22:28 Intake and Output: 04/07/18 04/08/18 18:59 06:59 Intake Total 2040 Output Total 800 Balance 1240 - Medications Medications: Current Medications Albuterol/Ipratropium (Duoneb 3 Mg/0.5 Mg (3 Ml) Ud) 3 ml IH [id number] [facility] Last Admin: 04/07/18 19:47 Dose: 3 ml Apixaban (Eliquis) 2.5 mg PO DAILY [facility] PRN Reason: Protocol Last Admin: 04/07/18 13:54 Dose: 2.5 mg Digoxin (Digoxin) 0.125 mg PO 1400 [facility] Last Admin: 04/07/18 13:54 Dose: 0.125 mg Diltiazem HCl (Cardizem Cd) 240 mg PO DAILY [facility] Pantoprazole Sodium (Protonix Inj) 40 mg IVP DAILY [facility] Last Admin: 04/07/18 09:38 Dose: 40 mg Polyethylene Glycol (Miralax) 17 gm PO BID [facility] Last Admin: 04/07/18 17:04 Dose: 17 gm - Labs Labs: 04/06/18 07:00 04/06/18 07:00 PT 15.1 SECONDS (9.4-12.5) H 04/04/18 08:57 INR 1.31 (0.93-1.08) H 04/04/18 08:57 APTT 21.4 Seconds (25.1-36.5) L 04/04/18 08:57 Attending/Attestation - Attestation I have personally seen and examined this patient.: Yes I have fully participated in the care of the patient.: Yes I have reviewed all pertinent clinical information, including history, physical exam and plan: Yes Notes (Text): p 04/08/18 00:01
--- NOTE | 2018-04-07 16:07 | PN ---
DATE: 04/07/2018 REASON FOR THE CONSULTATION AND FOLLOWUP: Atrial fibrillation; GI bleed, on Plavix; cardiac evaluation. BRIEF CLINICAL HISTORY: An 83-year-old male, very poor historian, with history of peripheral arterial disease, being followed by Dr. Houston; history of CVA in the past; chronic atrial fibrillation, on Plavix, came in with GI bleed and epigastric pain. Denies any chest pain, shortness of breath or any palpitation. Very poor historian. PHYSICAL EXAMINATION: VITAL SIGNS: Temperature afebrile, heart rate 88, blood pressure 123/55. HEENT: PERRLA, intact. NECK: Supple. No carotid bruits or thyromegaly. CHEST: Clear to auscultation. HEART: S1 and S2 regular. ABDOMEN: Soft. EXTREMITIES: Clubbing and cyanosis negative. LABORATORY DATA: Blood workup as follows: WBC 5.3, hemoglobin 11.3, hematocrit 33.8, platelet count 309. Chemistry shows sodium 141, potassium 4.2, chloride 104, carbon dioxide 26, anion gap of 15, BUN 13, and creatinine 1.1. EKG shows atrial fibrillation. IMPRESSION: Acute kidney injury on chronic renal insufficiency; history of hypertension; history of atrial fibrillation, on Plavix, admitted with epigastric pain and gastrointestinal bleed and acute kidney injury, peripheral arterial disease, history of cerebrovascular accident, history of hyperlipidemia, hypertension. RECOMMENDATIONS: Hold Plavix because of in view of recent bleed. Echo to assess LV function. Cardizem 60 mg p.o. four times a day started. We will change to CD tomorrow and monitor the heart rate. Not a candidate for anticoagulation because the patient bled on Plavix, so cannot start on Eliquis. We will get echo to assess LV function. We will follow with you. We will get lipid profile, TSH, hemoglobin A1c. Kidney function and acute kidney injury improved. Thank you Dr. Garcia for providing me the opportunity in taking care of the patient, Alphonse Simms. Modesta Malagon MD
[2018-04-07] MEDS ORDERED: Mineral Oil Enema 135 ml RC ONE (18:03)
[2018-04-08] MEDS: Albuterol-Ipratrop 3 mg / 0.5 (3 ml) UD IH SCH ×5 (01:59→20:05)
--- NOTE | 2018-04-08 06:41 | CP.PCM.PN ---
Subjective - Date & Time of Evaluation Date of Evaluation: 04/08/18 Time of Evaluation: 06:20 - Subjective Subjective: Lying in bed,no distress, easily awaken, denies chest pain, denies shortness of breath Reason for consultation and follow up: Cardiac evaluation, atrial fibrillation on plavix, Cerebrovascular disease ( right sided weakness) peripheral arterial disease, hypertension. Seen and examined by me and Dr. Malagon Objective - Vital Signs/Intake and Output Vital Signs (last 24 hours): Temp Pulse Resp BP Pulse Ox 98.5 F 91 H 20 123/79 99 04/07/18 22:28 04/07/18 22:28 04/07/18 22:28 04/07/18 22:28 04/07/18 22:28 Intake and Output: 04/07/18 04/08/18 18:59 06:59 Intake Total 2040 60 Output Total 800 Balance 1240 60 - Medications Medications: Current Medications Albuterol/Ipratropium (Duoneb 3 Mg/0.5 Mg (3 Ml) Ud) 3 ml IH [id number] [facility] Last Admin: 04/08/18 01:59 Dose: 3 ml Apixaban (Eliquis) 2.5 mg PO DAILY [facility] PRN Reason: Protocol Last Admin: 04/07/18 13:54 Dose: 2.5 mg Digoxin (Digoxin) 0.125 mg PO 1400 [facility] Last Admin: 04/07/18 13:54 Dose: 0.125 mg Diltiazem HCl (Cardizem Cd) 240 mg PO DAILY [facility] Pantoprazole Sodium (Protonix Inj) 40 mg IVP DAILY [facility] Last Admin: 04/07/18 09:38 Dose: 40 mg Polyethylene Glycol (Miralax) 17 gm PO BID [facility] Last Admin: 04/07/18 17:04 Dose: 17 gm - Labs Labs: 04/06/18 07:00 04/06/18 07:00 PT 15.1 SECONDS (9.4-12.5) H 04/04/18 08:57 INR 1.31 (0.93-1.08) H 04/04/18 08:57 APTT 21.4 Seconds (25.1-36.5) L 04/04/18 08:57 - Constitutional Appears: No Acute Distress - Head Exam Head Exam: NORMOCEPHALIC - ENT Exam ENT Exam: Mucous Membranes Moist - Respiratory Exam Respiratory Exam: Decreased Breath Sounds, Clear to Ausculation Bilateral, NORMAL BREATHING PATTERN - Cardiovascular Exam Cardiovascular Exam: +S1, +S2 - GI/Abdominal Exam GI & Abdominal Exam: Soft, Normal Bowel Sounds - Extremities Exam Extremities Exam: Normal Capillary Refill Additional comments: left sided weakness - Neurological Exam Neurological Exam: Alert, Awake Additional comments: disoriented - Psychiatric Exam Psychiatric exam: Normal Affect, Normal Mood - Skin Skin Exam: Intact, Normal Color, Warm Assessment and Plan - Assessment and Plan (Free Text) Assessment: an 83 year old male who was transferred from [place] to ER due to coffee ground vomiting. History of atrial fibrillation on plavix, Cerebrovascular disease ( right sided weakness) peripheral arterial disease, hypertension. Also complaining of some epigastric pain. Plan: For ECHO to evaluate LV function Held Plavix due to coffee ground emesis No further episode of vomiting Heart rate and blood pressure controlled Stable cardiac status Started on low dose Eliquis 2.5 mg daily for Afib Watch out for any bleeding, if stable will increase accordingly On Digoxin 0.125 mg daily, Cardizem CD 240 mg daily Continue current medications Continue current treatment GI on consult Will follow up Plan and treatment discussed with Dr. Malagon
[2018-04-08 06:56] LABS: BASO # 0.02 K/mm3 (0.0-2.0); BASO % 0.4 % (0.0-3.0); EOS # 0.2 (0.0-0.7); EOS % 3.8 % (1.5-5.0); GRAN # 2.78 (1.4-6.5); GRAN % 55.3 % (50.0-68.0); HEMOGLOBIN 11.1 g/dL (14.0-18.0); LYMPH # 1.5 (1.2-3.4); LYMPH % 29.3 % (22.0-35.0); MEAN CELL VOLUME 84.3 fl (80.0-105.0); MEAN CORPUSCULAR HEMOGLOBIN 27.8 pg (25.0-35.0); MEAN CORPUSCULAR HGB CONC 32.9 g/dl (31.0-37.0); MEAN PLATELET VOLUME 8.9 fl (7.0-11.0); MONO # 0.6 (0.1-0.6); MONO % 11.2 % (1.0-6.0); RED CELL DISTRIBUTION WIDTH 13.3 % (11.5-14.5)
[2018-04-08 07:27] LABS: LDL CHOLESTEROL 81 mg/dL (0-129)
[2018-04-08 07:37] LABS: ALB/GLOB RATIO 1.1 (1.1-1.8); ALBUMIN 3.4 g/dL (3.0-4.8); ALT/SGPT 31 U/L (7-56); AST/SGOT 18 U/L (17-59); BLOOD UREA NITROGEN 9 mg/dL (7-21); CALCIUM 9.1 mg/dL (8.4-10.5); GFR AFRICAN-AMERICAN > 60; GFR NON-AFRICAN AMERICAN > 60; HDL CHOLESTEROL 47 mg/dL (29-60)
--- NOTE | 2018-04-08 10:27 | CARD ---
APPROVED REPORT EKG Measurement Heart [id number] <Conclusion> Atrial fibrillation Minimal voltage criteria for LVH, may be normal variant Nonspecific T wave abnormality, probably digitalis effect Abnormal ECG
[2018-04-08] MEDS: POLYETHYLENE GLYCOL 3350 17 GM/Dose PACKET PO SCH ×2 (11:12→17:01)
[2018-04-08] MEDS: diltiaZEM 240 mg/24 Hours CD Cap PO SCH (11:13)
--- NOTE | 2018-04-08 11:18 | CARD ---
APPROVED REPORT EXAM: Two-dimensional and M-mode echocardiogram with Doppler and color Doppler. INDICATION Chest Pain 2D DIMENSIONS Left Atrium (2D)4.2 (1.6-4.0cm)IVSd1.3 (0.7-1.1cm) LVDd3.9 (3.9-5.9cm)PWd1.3 (0.7-1.1cm) LVDs3.1 (2.5-4.0cm)FS (%) 21.5 % LVEF (%)44.3 (>50%) M-Mode DIMENSIONS Aortic Root3.20 (2.2-3.7cm)Aortic Cusp Exc.1.20 (1.5-2.0cm) Aortic Valve AoV Peak Brajtign126.0cm/Laurita Peak GR.7mmHg Mitral Valve E/A ratio0.0 TDI E/Lateral E'0.0E/Medial E'0.0 Tricuspid Valve TR Peak [id number] [id number] Peak Gr.29mmHg [id number] LEFT VENTRICLE The left ventricle is normal size. There is mild concentric left ventricular hypertrophy. The systolic function is mildly impaired.EF_45% There is mild hypokinesis in the apical anterior wall. diastolic dysfunction can not beassessed b/c pt was in afib at the time of study. No left ventricle thrombus noted on this study. There is no ventricular septal defect visualized. There is no left ventricular aneurysm. There is no mass noted in the left ventricle. RIGHT VENTRICLE The right ventricle is normal size. There is normal right ventricular wall thickness. The right ventricular systolic function is normal. ATRIA The left atrium is mildly dilated. The right atrium size is normal. The interatrial septum is intact with no evidence for an atrial septal defect. AORTIC VALVE The aortic valve is calcified and displays decreased opening. The aortic valve is moderately sclerotic. There is mild to moderate aortic regurgitation. There is mild valvular aortic stenosis. VS aortic sclerosis There is no aortic valvular vegetation. MITRAL VALVE The mitral valve is thickened but opens well. Mitral annular calcification is moderate. Mitral regurgitation is mild. There is no mitral valve stenosis. There is no evidence of mitral valve prolapse. TRICUSPID VALVE The tricuspid valve leaflets are thickened , but open well. There is mild tricuspid regurgitation.RVSP-39 mmof mHg There is no tricuspid valve stenosis. There is no tricuspid valve prolapse or vegetation. PULMONIC VALVE The pulmonic valve is not well visualized. GREAT VESSELS The aortic root is normal in size. The ascending aorta is normal in size. The pulmonary artery is normal. The IVC is normal in size and collapses >50% with inspiration. PERICARDIAL EFFUSION There is no pleural effusion. There is no pericardial effusion. <Conclusion> There is mild concentric left ventricular hypertrophy. The systolic function is mildly impaired.EF_45% The left atrium is mildly dilated. There is mild valvular aortic stenosis. VS aortic sclerosis Mitral regurgitation is mild. There is mild tricuspid regurgitation.RVSP-39 mmof mHg There is no pericardial effusion. No Vegetatation or thrombus noted.
--- NOTE | 2018-04-08 11:29 | CP.PCM.PN ---
<Alyson Adams - Last Filed: 04/09/18 07:21> Subjective - Date & Time of Evaluation Date of Evaluation: 04/08/18 Time of Evaluation: 10:00 - Subjective Subjective: PGY-2 GI progress note for Dr. Heaton's service Patient seen and examined at bedside. No acute distress. Patient states that he is feeling good. He denies abd pain, n/v, no overt bleeding. Patient is tolerating heart health diet. Patient was given fleet enema for constipation. Objective - Vital Signs/Intake and Output Vital Signs (last 24 hours): Temp Pulse Resp BP Pulse Ox 98.5 F 100 H 20 139/82 95 04/08/18 06:00 04/08/18 06:00 04/08/18 06:00 04/08/18 06:00 04/08/18 06:00 Intake and Output: 04/08/18 04/08/18 06:59 18:59 Intake Total 60 Balance 60 - Medications Medications: Current Medications Albuterol/Ipratropium (Duoneb 3 Mg/0.5 Mg (3 Ml) Ud) 3 ml IH [id number] [facility] Last Admin: 04/08/18 07:56 Dose: 3 ml Apixaban (Eliquis) 2.5 mg PO DAILY [facility] PRN Reason: Protocol Last Admin: 04/07/18 13:54 Dose: 2.5 mg Digoxin (Digoxin) 0.125 mg PO 1400 [facility] Last Admin: 04/07/18 13:54 Dose: 0.125 mg Diltiazem HCl (Cardizem Cd) 240 mg PO DAILY [facility] Last Admin: 04/08/18 11:13 Dose: 240 mg Pantoprazole Sodium (Protonix Ec Tab) 40 mg PO ACB [facility] Polyethylene Glycol (Miralax) 17 gm PO BID [facility] Last Admin: 04/08/18 11:12 Dose: 17 gm - Labs Labs: 04/08/18 06:15 04/08/18 06:15 PT 15.1 SECONDS (9.4-12.5) H 04/04/18 08:57 INR 1.31 (0.93-1.08) H 04/04/18 08:57 APTT 21.4 Seconds (25.1-36.5) L 04/04/18 08:57 - Constitutional Appears: Well, No Acute Distress - Head Exam Head Exam: ATRAUMATIC, NORMOCEPHALIC - Eye Exam Eye Exam: EOMI, Normal appearance - ENT Exam ENT Exam: Mucous Membranes Moist - Respiratory Exam Respiratory Exam: Clear to Ausculation Bilateral, NORMAL BREATHING PATTERN. absent: Decreased Breath Sounds, Rales, Rhonchi, Wheezes, Respiratory Distress, Stridor - Cardiovascular Exam Cardiovascular Exam: REGULAR RHYTHM. absent: Bradycardia, Tachycardia, Murmur - GI/Abdominal Exam GI & Abdominal Exam: Soft, Normal Bowel Sounds. absent: Distended, Firm, Guarding, Tenderness - Extremities Exam Extremities Exam: Normal Inspection. absent: Pedal Edema, Tenderness - Neurological Exam Neurological Exam: Alert, Awake - Skin Skin Exam: Dry, Intact, Normal Color, Warm Assessment and Plan - Assessment and Plan (Free Text) Assessment: 83yo male with history of atrial fibrillation on eliquis , CVA, hypertension presents f with report of coffee-ground emesis Coffee ground emesis, differentials consider is peptic ulcer disease, angiodysplasia CVA with right-sided weakness Atrial fibrillation Hypertension Hyperkalemia- resolved Plan: -diet as tolerated -continue Protonix daily -CT scan of abdomen and pelvis, report was reviewed, no acute findings -Trend H&H and monitor for GI bleed -Patient may benefit from EGD as outpatient -patient on Elquis -consider anemia workup -continue to monitor for overt bleeding case reviewed and discussed with Dr. Heaton. <Clark Heaton V - Last Filed: 04/09/18 23:58> Objective - Vital Signs/Intake and Output Vital Signs (last 24 hours): Temp Pulse Resp BP Pulse Ox 97.9 F 100 H 20 134/73 100 04/09/18 14:00 04/09/18 14:00 04/09/18 14:00 04/09/18 14:00 04/09/18 14:00 Intake and Output: 04/09/18 04/10/18 18:59 06:59 Intake Total 240 Output Total 400 Balance -160 - Medications Medications: Current Medications Albuterol/Ipratropium (Duoneb 3 Mg/0.5 Mg (3 Ml) Ud) 3 ml IH [id number] [facility] Last Admin: 04/09/18 21:03 Dose: 3 ml Apixaban (Eliquis) 2.5 mg PO DAILY [facility] PRN Reason: Protocol Last Admin: 04/09/18 09:59 Dose: 2.5 mg Digoxin (Digoxin) 0.125 mg PO 1400 [facility] Last Admin: 04/09/18 14:31 Dose: 0.125 mg Diltiazem HCl (Cardizem Cd) 240 mg PO DAILY [facility] [place] Last Admin: 04/09/18 09:59 Dose: 240 mg Finasteride (Proscar) 5 mg PO DAILY [facility] [place] Last Admin: 04/09/18 14:31 Dose: 5 mg Pantoprazole Sodium (Protonix Ec Tab) 40 mg PO ACB [facility] Last Admin: 04/09/18 08:17 Dose: 40 mg Polyethylene Glycol (Miralax) 17 gm PO BID [facility] Last Admin: 04/09/18 18:07 Dose: 17 gm Tamsulosin HCl (Flomax) 0.4 mg PO DAILY [facility] Last Admin: 04/09/18 14:31 Dose: 0.4 mg - Labs Labs: 04/09/18 08:15 04/09/18 08:15 PT 15.1 SECONDS (9.4-12.5) H 04/04/18 08:57 INR 1.31 (0.93-1.08) H 04/04/18 08:57 APTT 21.4 Seconds (25.1-36.5) L 04/04/18 08:57 Attending/Attestation - Attestation I have personally seen and examined this patient.: Yes I have fully participated in the care of the patient.: Yes I have reviewed all pertinent clinical information, including history, physical exam and plan: Yes Notes (Text): This is an addendum to GI progress report dictated by the Medical Device Assembler.The patient was seen and examined earlier. Medical records, lab studies, imagings were reviewed. Last 24 hours events reviewed. Agreed with the above treatment plan as outlined in Medical Device Assembler 's notes the with the addition of the following 04/09/18 23:58
[2018-04-08] MEDS: Digoxin 125 mcg (0.125 mg) Tab PO SCH (14:42)
--- NOTE | 2018-04-08 19:39 | PN ---
DATE: 04/08/2018 NEUROLOGY FOLLOWUP CHIEF COMPLAINT: Followup for change in altered mental status. SUBJECTIVE: Patient was seen and examined at bedside. No acute distress. Following simple commands. Currently, GI note reviewed and appreciated. Electrolytes are stable today. 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 ALLERGIES: NOT ALLERGIC TO ANY MEDICATION. MEDICATIONS: Reviewed by nurse per reconciliation sheet. SOCIAL HISTORY: No illicit drug use, smoking, or EtOH abuse. REVIEW OF SYSTEMS: A 14-point review of systems is negative except in the HPI. PHYSICAL EXAMINATION: VITAL SIGNS: Temperature 98.5, pulse of 91, blood pressure 123/79, respiratory rate 20, oxygen saturation 99% on room air. GENERAL: Patient is seen up in bed. No acute distress. HEENT: Head is atraumatic and normocephalic. PERRLA. Extraocular muscles intact. NECK: Supple. No JVD. No adenopathy noted. LUNGS: Clear to auscultation. No adventitious sounds. HEART: S1, S2. Normal rate and rhythm. No murmurs, rubs, or gallops. ABDOMEN: Soft, nontender, nondistended. Bowel sounds are present. EXTREMITIES: No clubbing, no cyanosis. Peripheral pulses 2+ felt bilaterally. NEUROLOGIC: Patient is alert and oriented to person and place. Recall after 5 minutes is 0/3. Poor attention span. Slow thought process. Cranial nerves II through XII intact. Motor exam: Has residual right-sided weakness from prior CVA. Sensory: Decreased light touch and pinprick up to the calves bilaterally. Decreased vibration of the toes. DTRs are 2+ and one at both ankles. Coordination: [id number] intact except for the right side due to residual right-sided weakness. Gait is deferred for now. LABORATORY DATA: Sodium is 139, potassium 4.6, chloride 102, carbon dioxide 26, BUN of 9, creatinine 1.1, random glucose of 101, A1c 6.1. ASSESSMENT AND PLAN: This is an 83-year-old man with history of hypertension, atrial fibrillation, mild dementia, status post cerebrovascular accident with residual right-sided weakness, history of bed bound, hyperlipidemia came for confusion. He had episodes of coffee-ground emesis prior to admission, therefore, he is arousable. He had a transient confusional state superimposed underlying medical conditions. His currently GI notes reviewed and appreciated their workup. At this time, we recommend continue with Eliquis 2.5 mg p.o. daily and PT/OT and rehab. We will monitor electrolytes and correct according. Delirium precautions. Timur Win MD
--- NOTE | 2018-04-08 22:45 | PN ---
DATE: 04/08/2018 SUBJECTIVE: Patient is an 83 years old, seen and examined, seems to be sleepy, does not want to be bothered, open eye on verbal command. According to nurse, not alert enough to be given medication, had enema last night, had small bowel movement. Does not seem to be in any distress. PHYSICAL EXAMINATION: VITAL SIGNS: He is afebrile. Pulse 105, respirations 20, blood pressure 125/83. LUNGS: Bilateral fair airflow. No rhonchi or crackle. HEART: S1 and S2 audible. ABDOMEN: Soft. No palpable discomfort. No rebound. No guarding. NEUROLOGIC: He is sleepy, but arousable. EXTREMITIES: Bilateral legs, no edema. LABORATORY EXAMINATION: WBC 5, hemoglobin 11, hematocrit 33.7, platelet 321. Chemistry: Sodium 139, potassium 4.6, chloride 102, CO2 26, BUN 9, creatinine 1.1. Blood sugar of 101. LFTs are within normal limits. Echocardiogram was done today showed mild concentric LVH with impaired ejection fraction of 45% and had mild valvular aortic stenosis versus sclerosis. ASSESSMENT AND PLAN: 1. Status post upper gastrointestinal bleed. Patient was taken off of Eliquis although he has atrial fibrillation, but has been restarted. We will monitor his hemoglobin and hematocrit. Currently, he is on Cardizem and digoxin. 2. Status post cerebrovascular accident with generalized weakness and difficulty walking. 3. History of hypertension. 4. Hyperlipidemia. 5. Chronic atrial fibrillation. So plan is, we will continue patient on laxative. Continue on Protonix. We will reevaluate in a.m. We will follow up CBC and CMP. If it is stable, will be discharged to [facility] in a.m. and will have endoscopy done as outpatient. Merlin Atkinson MD
[2018-04-09] MEDS: Albuterol-Ipratrop 3 mg / 0.5 (3 ml) UD IH SCH ×4 (03:09→21:03)
--- NOTE | 2018-04-09 06:46 | CP.PCM.PN ---
Subjective - Date & Time of Evaluation Date of Evaluation: 04/09/18 Time of Evaluation: 06:25 - Subjective Subjective: No distress, lying in bed, easily awaken, denies chest pain, denies shortness of breath Reason for consultation and follow up: Cardiac evaluation, atrial fibrillation on plavix, Cerebrovascular disease ( right sided weakness) peripheral arterial disease, hypertension. Seen and examined by me and Dr. Malagon Objective - Vital Signs/Intake and Output Vital Signs (last 24 hours): Temp Pulse Resp BP Pulse Ox 98.2 F 100 H 18 113/70 100 04/08/18 23:12 04/08/18 23:12 04/08/18 23:12 04/08/18 23:12 04/08/18 23:12 Intake and Output: 04/08/18 04/09/18 18:59 06:59 Intake Total 120 180 Output Total 1200 Balance 120 -1020 - Medications Medications: Current Medications Albuterol/Ipratropium (Duoneb 3 Mg/0.5 Mg (3 Ml) Ud) 3 ml IH [id number] [facility] Last Admin: 04/09/18 03:09 Dose: 3 ml Apixaban (Eliquis) 2.5 mg PO DAILY [facility] PRN Reason: Protocol Last Admin: 04/08/18 14:42 Dose: 2.5 mg Digoxin (Digoxin) 0.125 mg PO 1400 [facility] Last Admin: 04/08/18 14:42 Dose: 0.125 mg Diltiazem HCl (Cardizem Cd) 240 mg PO DAILY [facility] Last Admin: 04/08/18 11:13 Dose: 240 mg Pantoprazole Sodium (Protonix Ec Tab) 40 mg PO ACB [facility] Polyethylene Glycol (Miralax) 17 gm PO BID [facility] Last Admin: 04/08/18 17:01 Dose: 17 gm - Labs Labs: 04/08/18 06:15 04/08/18 06:15 PT 15.1 SECONDS (9.4-12.5) H 04/04/18 08:57 INR 1.31 (0.93-1.08) H 04/04/18 08:57 APTT 21.4 Seconds (25.1-36.5) L 04/04/18 08:57 - Constitutional Appears: No Acute Distress - Head Exam Head Exam: NORMOCEPHALIC - Eye Exam Eye Exam: Normal appearance - ENT Exam ENT Exam: Mucous Membranes Moist - Respiratory Exam Respiratory Exam: Clear to Ausculation Bilateral, NORMAL BREATHING PATTERN - Cardiovascular Exam Cardiovascular Exam: +S1, +S2 Additional comments: right sided weakness - GI/Abdominal Exam GI & Abdominal Exam: Soft, Normal Bowel Sounds - Exam Additional comments: barry catheter - Extremities Exam Extremities Exam: Normal Capillary Refill - Neurological Exam Neurological Exam: Alert, Awake Additional comments: disoriented - Psychiatric Exam Psychiatric exam: Normal Affect, Normal Mood - Skin Skin Exam: Intact, Normal Color, Warm Assessment and Plan - Assessment and Plan (Free Text) Assessment: An 83 year old male who was transferred from [place] to ER due to coffee ground vomiting. History of atrial fibrillation on plavix, Cerebrovascular disease ( right sided weakness) peripheral arterial disease, hypertension. Also complaining of some epigastric pain. Plan: ECHO done yesterday; LVEF 45%, mild MR/TR No further episode of vomiting, GI prophylaxis (Protonix) Followed up by GI Fleet enema administered for constipation with bowel movement Heart rate and blood pressure controlled Stable cardiac status On low dose Eliquis 2.5 mg daily for Afib Watch out for any bleeding, if stable will increase accordingly On Digoxin 0.125 mg daily, Cardizem CD 240 mg daily Continue current medications Continue current treatment Discharge planning, Son wanted him to go back to [facility] Will follow up Plan and treatment discussed with Dr. Malagon
[2018-04-09 07:47] VITALS: RESP 20
[2018-04-09] MEDS: Pantoprazole 40 mg EC Tab PO SCH (08:17)
[2018-04-09 08:29] LABS: HEMOGLOBIN 11.7 g/dL (14.0-18.0); MEAN CELL VOLUME 85.5 fl (80.0-105.0); MEAN CORPUSCULAR HEMOGLOBIN 27.8 pg (25.0-35.0); MEAN CORPUSCULAR HGB CONC 32.5 g/dl (31.0-37.0); MEAN PLATELET VOLUME 8.9 fl (7.0-11.0); RBC 4.21 10^6/uL (3.5-6.1); RED CELL DISTRIBUTION WIDTH 13.4 % (11.5-14.5)
[2018-04-09 08:36] LABS: BLOOD UREA NITROGEN 8 mg/dL (7-21); CALCIUM 9.1 mg/dL (8.4-10.5); GFR AFRICAN-AMERICAN > 60; GFR NON-AFRICAN AMERICAN > 60
[2018-04-09] MEDS: POLYETHYLENE GLYCOL 3350 17 GM/Dose PACKET PO SCH ×2 (09:59→18:07)
[2018-04-09] MEDS: diltiaZEM 240 mg/24 Hours CD Cap PO SCH (09:59)
--- NOTE | 2018-04-09 10:35 | CP.PCM.PN ---
<BryanAlyson - Last Filed: 04/09/18 15:41> Subjective - Date & Time of Evaluation Date of Evaluation: 04/09/18 Time of Evaluation: 09:00 - Subjective Subjective: PGY-2 GI progress note for Dr. Heaton's service Patient seen and examined at bedside. No acute distress. Patient states that he is feeling good. No overt bleeding. Patient is tolerating heart health diet. Objective - Vital Signs/Intake and Output Vital Signs (last 24 hours): Temp Pulse Resp BP Pulse Ox 98.9 F 104 H 20 140/85 96 04/09/18 06:00 04/09/18 09:59 04/09/18 06:00 04/09/18 09:59 04/09/18 06:00 Intake and Output: 04/09/18 04/09/18 06:59 18:59 Intake Total 180 Output Total 1200 Balance -1020 - Medications Medications: Current Medications Albuterol/Ipratropium (Duoneb 3 Mg/0.5 Mg (3 Ml) Ud) 3 ml IH [id number] [facility] Last Admin: 04/09/18 07:31 Dose: 3 ml Apixaban (Eliquis) 2.5 mg PO DAILY [facility] PRN Reason: Protocol Last Admin: 04/09/18 09:59 Dose: 2.5 mg Digoxin (Digoxin) 0.125 mg PO 1400 [facility] Last Admin: 04/08/18 14:42 Dose: 0.125 mg Diltiazem HCl (Cardizem Cd) 240 mg PO DAILY [facility] Last Admin: 04/09/18 09:59 Dose: 240 mg Pantoprazole Sodium (Protonix Ec Tab) 40 mg PO ACB [facility] Last Admin: 04/09/18 08:17 Dose: 40 mg Polyethylene Glycol (Miralax) 17 gm PO BID [facility] Last Admin: 04/09/18 09:59 Dose: 17 gm - Labs Labs: 04/09/18 08:15 04/09/18 08:15 PT 15.1 SECONDS (9.4-12.5) H 04/04/18 08:57 INR 1.31 (0.93-1.08) H 04/04/18 08:57 APTT 21.4 Seconds (25.1-36.5) L 04/04/18 08:57 - Constitutional Appears: Well, No Acute Distress - Head Exam Head Exam: ATRAUMATIC, NORMAL INSPECTION, NORMOCEPHALIC - Eye Exam Eye Exam: EOMI, Normal appearance - ENT Exam ENT Exam: Mucous Membranes Moist - Respiratory Exam Respiratory Exam: NORMAL BREATHING PATTERN. absent: Respiratory Distress - GI/Abdominal Exam GI & Abdominal Exam: Soft. absent: Distended, Firm, Guarding, Tenderness - Extremities Exam Extremities Exam: Normal Inspection - Neurological Exam Neurological Exam: Alert, Awake - Skin Skin Exam: Dry, Intact, Normal Color, Warm Assessment and Plan - Assessment and Plan (Free Text) Assessment: 83yo male with history of atrial fibrillation on eliquis , CVA, hypertension presents f with report of coffee-ground emesis Coffee ground emesis- improved, differentials consider is peptic ulcer disease, angiodysplasia CVA with right-sided weakness Atrial fibrillation Hypertension Hyperkalemia- resolved Plan: -diet as tolerated -continue Protonix daily -CT scan of abdomen and pelvis, report was reviewed, no acute findings -Trend H&H, stable -Patient may benefit from EGD as outpatient -patient on Elquis -consider anemia workup -continue to monitor for overt bleeding case reviewed and discussed with Dr. Heaton. <Clark Heaton V - Last Filed: 04/09/18 23:42> Objective - Vital Signs/Intake and Output Vital Signs (last 24 hours): Temp Pulse Resp BP Pulse Ox 97.9 F 100 H 20 134/73 100 04/09/18 14:00 04/09/18 14:00 04/09/18 14:00 04/09/18 14:00 04/09/18 14:00 Intake and Output: 04/09/18 04/10/18 18:59 06:59 Intake Total 240 Output Total 400 Balance -160 - Medications Medications: Current Medications Albuterol/Ipratropium (Duoneb 3 Mg/0.5 Mg (3 Ml) Ud) 3 ml IH [id number] [facility] Last Admin: 04/09/18 21:03 Dose: 3 ml Apixaban (Eliquis) 2.5 mg PO DAILY [facility] PRN Reason: Protocol Last Admin: 04/09/18 09:59 Dose: 2.5 mg Digoxin (Digoxin) 0.125 mg PO 1400 [facility] Last Admin: 04/09/18 14:31 Dose: 0.125 mg Diltiazem HCl (Cardizem Cd) 240 mg PO DAILY [facility] Last Admin: 04/09/18 09:59 Dose: 240 mg Finasteride (Proscar) 5 mg PO DAILY [facility] Last Admin: 04/09/18 14:31 Dose: 5 mg Pantoprazole Sodium (Protonix Ec Tab) 40 mg PO ACB [facility] Last Admin: 04/09/18 08:17 Dose: 40 mg Polyethylene Glycol (Miralax) 17 gm PO BID [facility] Last Admin: 04/09/18 18:07 Dose: 17 gm Tamsulosin HCl (Flomax) 0.4 mg PO DAILY [facility] Last Admin: 04/09/18 14:31 Dose: 0.4 mg - Labs Labs: 04/09/18 08:15 04/09/18 08:15 PT 15.1 SECONDS (9.4-12.5) H 04/04/18 08:57 INR 1.31 (0.93-1.08) H 04/04/18 08:57 APTT 21.4 Seconds (25.1-36.5) L 04/04/18 08:57 Attending/Attestation - Attestation I have personally seen and examined this patient.: Yes I have fully participated in the care of the patient.: Yes I have reviewed all pertinent clinical information, including history, physical exam and plan: Yes Notes (Text): This is an addendum to GI progress report dictated by the [employer].The patient was seen and examined earlier. Medical records, lab studies, imagings were reviewed. Last 24 hours events reviewed. Agreed with the above treatment plan as outlined in [employer] 's notes the with the addition of the following 04/09/18 23:42
[2018-04-09] MEDS: Digoxin 125 mcg (0.125 mg) Tab PO SCH (14:31)
--- NOTE | 2018-04-09 23:36 | DS ---
HISTORY OF PRESENT ILLNESS: Patient is 83 years old, seen and examined, looks much more awake and alert, eating his dinner. PHYSICAL EXAMINATION: VITAL SIGNS: He is afebrile, pulse 104, respirations 20, blood pressure 140/85. LUNGS: Bilateral fair airflow. No rhonchi or crackle. HEART: S1 and S2 audible. ABDOMEN: Soft, nontender. No rebound. No guarding. NEUROLOGIC: He is awake, alert, oriented, has generalized weakness, follows verbal commands. LABORATORY EXAMINATION: WBC 6, hemoglobin 11.7, hematocrit 36, platelet 284. Chemistry: Sodium 138, potassium 4.5, chloride 101, CO2 of 27, BUN 8, creatinine 1.1. Blood sugar of 99. Echocardiogram done shows mild concentric LVH with ejection fraction of 45%. ASSESSMENT: 1. Status post upper gastrointestinal bleed. Hemoglobin seems to be stable. 2. History of cerebrovascular accident. 3. Atrial fibrillation. 4. History of hypertension. 5. Generalized weakness and difficulty walking. PLAN: Patient is tolerating his food. No plans for endoscopy on this admission since his hemoglobin is stable and he is not actively bleeding. So, patient will be discharged back to [facility]. Merlin Atkinson MD
[2018-04-10] MEDS: Albuterol-Ipratrop 3 mg / 0.5 (3 ml) UD IH SCH ×3 (02:04→13:05)
--- NOTE | 2018-04-10 07:07 | CP.PCM.PN ---
Subjective - Date & Time of Evaluation Date of Evaluation: 04/10/18 Time of Evaluation: 07:00 - Subjective Subjective: Awake, talking and responding to questions, No distress, lying in bed,no further emesis Reason for consultation and follow up: Cardiac evaluation, atrial fibrillation on plavix, Cerebrovascular disease ( right sided weakness) peripheral arterial disease, hypertension. Seen and examined by me and Dr. Malagon Objective - Vital Signs/Intake and Output Vital Signs (last 24 hours): Temp Pulse Resp BP Pulse Ox 97.9 F 100 H 20 134/73 100 04/09/18 14:00 04/09/18 14:00 04/09/18 14:00 04/09/18 14:00 04/09/18 14:00 Intake and Output: 04/10/18 04/10/18 06:59 18:59 Intake Total 120 Balance 120 - Medications Medications: Current Medications Albuterol/Ipratropium (Duoneb 3 Mg/0.5 Mg (3 Ml) Ud) 3 ml IH [id number] [facility] Last Admin: 04/10/18 02:04 Dose: 3 ml Apixaban (Eliquis) 2.5 mg PO DAILY [facility] PRN Reason: Protocol Last Admin: 04/09/18 09:59 Dose: 2.5 mg Digoxin (Digoxin) 0.125 mg PO 1400 [facility] Last Admin: 04/09/18 14:31 Dose: 0.125 mg Diltiazem HCl (Cardizem Cd) 240 mg PO DAILY [facility] Last Admin: 04/09/18 09:59 Dose: 240 mg Finasteride (Proscar) 5 mg PO DAILY [facility] Last Admin: 04/09/18 14:31 Dose: 5 mg Pantoprazole Sodium (Protonix Ec Tab) 40 mg PO ACB [facility] Last Admin: 04/09/18 08:17 Dose: 40 mg Polyethylene Glycol (Miralax) 17 gm PO BID [facility] Last Admin: 04/09/18 18:07 Dose: 17 gm Tamsulosin HCl (Flomax) 0.4 mg PO DAILY [facility] Last Admin: 04/09/18 14:31 Dose: 0.4 mg - Labs Labs: 04/09/18 08:15 04/09/18 08:15 PT 15.1 SECONDS (9.4-12.5) H 04/04/18 08:57 INR 1.31 (0.93-1.08) H 04/04/18 08:57 APTT 21.4 Seconds (25.1-36.5) L 04/04/18 08:57 - Constitutional Appears: No Acute Distress - Head Exam Head Exam: NORMOCEPHALIC - ENT Exam ENT Exam: Mucous Membranes Moist - Respiratory Exam Respiratory Exam: Clear to Ausculation Bilateral, NORMAL BREATHING PATTERN - Cardiovascular Exam Cardiovascular Exam: +S1, +S2 Additional comments: right sided weakness - GI/Abdominal Exam GI & Abdominal Exam: Soft, Normal Bowel Sounds - Exam Additional comments: barry catheter - Extremities Exam Extremities Exam: Normal Capillary Refill - Neurological Exam Neurological Exam: Alert, Awake - Psychiatric Exam Psychiatric exam: Normal Affect, Normal Mood - Skin Skin Exam: Intact, Normal Color, Warm Assessment and Plan - Assessment and Plan (Free Text) Assessment: n 83 year old male who was transferred from [place] to ER due to coffee ground vomiting. History of atrial fibrillation on plavix, Cerebrovascular disease ( right sided weakness) peripheral arterial disease, hypertension. Also complaining of some epigastric pain. Plan: For possible discharge today to [facility] No further episode of vomiting, GI prophylaxis (Protonix) Followed up by GI For out patient endoscopy Stable hemoglobin and no more episode of coffee ground emesis Stable cardiac status On Eliquis 2.5 mg daily, Digoxin 0.125 mg daily, Cardizem CD 240 mg daily Continue current medications Continue current treatment Discharge planning, Son wanted him to [facility] back [facility] Will follow up Plan and treatment discussed with Dr. Malagon
[2018-04-10 07:43] VITALS: BP 125/65; PULSE 94; TEMP 98.6; O2SAT 96
[2018-04-10] MEDS: Pantoprazole 40 mg EC Tab PO SCH (08:27)
[2018-04-10] MEDS: POLYETHYLENE GLYCOL 3350 17 GM/Dose PACKET PO SCH (10:42)
[2018-04-10] MEDS: diltiaZEM 240 mg/24 Hours CD Cap PO SCH (10:42)
--- NOTE | 2018-04-10 11:18 | CP.PCM.PN ---
Subjective - Date & Time of Evaluation Date of Evaluation: 04/10/18 Time of Evaluation: 10:22 - Subjective Subjective: S&E at bedside, chart reviewed. No C/o SOB, CP. N/V or abdominal pain. No reports of acute overnight events. As per nurse patient had BM yesterday,no reports of overt GI bleeding. Patient tolerating oral intake. Objective - Vital Signs/Intake and Output Vital Signs (last 24 hours): Temp Pulse Resp BP Pulse Ox 98.6 F 94 H 20 125/65 96 04/10/18 06:00 04/10/18 06:00 04/10/18 06:00 04/10/18 06:00 04/10/18 06:00 Intake and Output: 04/10/18 04/10/18 06:59 18:59 Intake Total 120 Balance 120 - Medications Medications: Current Medications Albuterol/Ipratropium (Duoneb 3 Mg/0.5 Mg (3 Ml) Ud) 3 ml IH [id number] [facility] Last Admin: 04/10/18 07:13 Dose: 3 ml Apixaban (Eliquis) 2.5 mg PO BID [facility] PRN Reason: Protocol Stop: 04/13/18 23:59 Digoxin (Digoxin) 0.125 mg PO 1400 [facility] Last Admin: 04/09/18 14:31 Dose: 0.125 mg Diltiazem HCl (Cardizem Cd) 240 mg PO DAILY [facility] Last Admin: 04/09/18 09:59 Dose: 240 mg Finasteride (Proscar) 5 mg PO DAILY [facility] Last Admin: 04/09/18 14:31 Dose: 5 mg Pantoprazole Sodium (Protonix Ec Tab) 40 mg PO ACB [facility] Last Admin: 04/10/18 08:27 Dose: 40 mg Polyethylene Glycol (Miralax) 17 gm PO BID [facility] Last Admin: 04/09/18 18:07 Dose: 17 gm Tamsulosin HCl (Flomax) 0.4 mg PO DAILY [facility] Last Admin: 04/09/18 14:31 Dose: 0.4 mg - Labs Labs: 04/09/18 08:15 04/09/18 08:15 PT 15.1 SECONDS (9.4-12.5) H 04/04/18 08:57 INR 1.31 (0.93-1.08) H 04/04/18 08:57 APTT 21.4 Seconds (25.1-36.5) L 04/04/18 08:57 - Constitutional Appears: No Acute Distress - Eye Exam Eye Exam: Normal appearance. absent: Scleral icterus - ENT Exam ENT Exam: Mucous Membranes Moist - Neck Exam Neck Exam: Normal Inspection - Respiratory Exam Respiratory Exam: NORMAL BREATHING PATTERN. absent: Respiratory Distress - Cardiovascular Exam Cardiovascular Exam: +S1, +S2 - GI/Abdominal Exam GI & Abdominal Exam: Soft, Normal Bowel Sounds. absent: Distended, Tenderness, Rebound - Extremities Exam Extremities Exam: absent: Calf Tenderness, Pedal Edema - Neurological Exam Neurological Exam: Alert, Awake, Oriented x3 (confused at times) - Skin Skin Exam: Dry, Warm Assessment and Plan - Assessment and Plan (Free Text) Assessment: Assessment: Coffee ground emesis- no further episode, H/H steady, differentials consider is peptic ulcer disease, angiodysplasia CVA with right-sided weakness Atrial fibrillation Hypertension Hyperkalemia- resolved Resolved acute RF Plan: -diet as tolerated -continue Protonix daily -CT scan of abdomen and pelvis, report was reviewed, no acute findings -Trend H&H, stable -Patient may benefit from EGD as outpatient -patient on Eliquis -consider anemia workup -continue to monitor for overt bleeding Seen and discussed with Dr. Heaton.
[2018-04-10] MEDS: Digoxin 125 mcg (0.125 mg) Tab PO SCH (14:15)
[2018-04-10 14:21] VITALS: PULSE 82
--- NOTE | 2018-04-11 10:17 | DS ---
HISTORY OF PRESENT ILLNESS: The patient is 83-year-old who was transferred from [place] because of upper GI bleed. His hemoglobin has been stable. No more GI bleed. He was constipated, led to urinary retention, currently has [place] catheter in. According to the nurse, he is eating well, seems to be more awake and alert today. PHYSICAL EXAMINATION: VITAL SIGNS: He is afebrile, pulse 94, respirations 20, blood pressure 125/65. LUNGS: Bilateral fair airflow. No rhonchi or crackle. HEART: S1, S2 audible. ABDOMEN: Soft, nontender. No rebound, no guarding. NEUROLOGIC: The patient is awake and alert, able to communicate, answers simple questions. LABORATORY DATA: WBC is 6, hemoglobin 11.7, hematocrit 36, platelets 284. Chemistry: Sodium 138, potassium 4.5, chloride 101, CO2 27, BUN 8, creatinine 1.1. Blood sugar 99. ASSESSMENT AND PLAN: 1. Status post upper gastrointestinal bleed. 2. Atrial fibrillation, on Eliquis. 3. Hypertension. 4. Status post cerebrovascular accident. 5. Renal insufficiency, improved. 6. Constipation. 7. Status post urinary retention. PLAN: Dr. Gonzalez's input noted and appreciated. The patient is currently stable, eating and tolerating, no active upper or lower GI bleed. He will be transferred back to [place] today. Merlin Atkinson MD
== END 2018-04-10 14:36 | DRG 378 ==
LOC: ED 08:08 → ERH 11:32 → 5RSO 14:14 → 2RSO 19:15 → 5RNO 04-07 18:33
PROVIDERS: ADMIT Internal Medicine; ATTEND Internal Medicine
PROC: 0T9B70Z Drainage of Bladder with Drainage Device, Via Natural or Artificial Opening (ICD-10-PCS; principal; 2018-04-04)
DX: K92.0 Hematemesis (principal); N17.9 Acute kidney failure, unspecified; N13.8 Other obstructive and reflux uropathy; I69.351 Hemiplegia and hemiparesis following cerebral infarction affecting right dominant side; I12.9 Hypertensive chronic kidney disease with stage 1 through stage 4 chronic kidney disease, or unspecified chronic kidney disease; N18.9 Chronic kidney disease, unspecified; N40.1 Benign prostatic hyperplasia with lower urinary tract symptoms; R33.8 Other retention of urine; F03.90 Unspecified dementia, unspecified severity, without behavioral disturbance, psychotic disturbance, mood disturbance, and anxiety; I48.2 Chronic atrial fibrillation; I73.9 Peripheral vascular disease, unspecified; K21.9 Gastro-esophageal reflux disease without esophagitis; E78.00 Pure hypercholesterolemia, unspecified; E78.5 Hyperlipidemia, unspecified; E87.5 Hyperkalemia; D64.9 Anemia, unspecified; K59.00 Constipation, unspecified; Z79.02 Long term (current) use of antithrombotics/antiplatelets; Z79.01 Long term (current) use of anticoagulants; Z79.82 Long term (current) use of aspirin; Z74.01 Bed confinement status

== ENCOUNTER 2018-09-02 09:00 | Inpatient (IN) | payer MEDICARE, OTHER ==
[2018-09-02 09:01] VITALS: PULSE 82
--- NOTE | 2018-09-02 09:27 | CT ---
Date of service: 09/02/2018 PROCEDURE: CT HEAD WITHOUT CONTRAST. HISTORY: Code Stroke COMPARISON: None available. TECHNIQUE: Axial computed tomography images were obtained through the head/brain without intravenous contrast. Radiation dose: Total exam DLP = 911.38 mGy-cm. This CT exam was performed using one or more of the following dose reduction techniques: Automated exposure control, adjustment of the mA and/or kV according to patient size, and/or use of iterative reconstruction technique. FINDINGS: HEMORRHAGE: No intracranial hemorrhage. BRAIN: There are moderate chronic microangiopathic changes. There are old lacunar infarctions in the centrum semiovale, hahn radiata, right basal ganglia and right thalamus. There is an old left posterior inferior cerebellar artery territory infarction. There is no mass, mass effect or abnormal extra-axial fluid collection. VENTRICLES: There is mild age-related global parenchymal volume loss and proportionate enlargement of the ventricles and cortical sulci. CALVARIUM: The skull base and calvarium are normal. PARANASAL SINUSES: There are aerosolized secretions in the sphenoid sinus. The remaining included paranasal sinuses are clear. MASTOID AIR CELLS: Predominantly clear. OTHER FINDINGS: None. IMPRESSION: No acute intracranial abnormality. Moderate chronic microangiopathic changes and mild age-related global parenchymal volume loss. Old infarctions in bilateral centrum semiovale, hahn radiata, right thalamus and right basal ganglia. Old left PICA territory infarction involving the posterior inferior cerebellum. The important findings were discussed with Dr. Love in the ER on 09/02/2018 at 9:17 a.m.
--- NOTE | 2018-09-02 09:39 | EDPD ---
HPI Stroke - General Time Seen by Provider: 09/02/18 09:03 Chief Complaint: Altered Mental Status Historian: Family (son), EMS - History of Present Illness Narrative History of Present Illness (Free Text): 09/02/18 09:03 83 yo male whose past medical history includes CHF on Digoxin, aFib on Eliquis, CVA (with right sided weakness), mild dementia and stroke, who was brought in to the Emergency department by EMS after son arrived from work this morning at 08:00 and found patient on floor, lethargic, unsteady gait (walks on baseline), mild right sided weakness, with AMS and slurred speech. Son states he last saw patient at 22:00 last night before leaving for overnight shift at work, at which time patient was normal. HPI is limited due to patient's status. Limited history provided. rTPA Inclusion/Exclusion - Refusal of Treatment Patient Refused Treatment: No - Inclusion Criteria for Altepase Patient is 18 years or Older: Yes The Clinical Diagnosis of Ischemic Stroke That is Causing a Potentially Disabling Neurological Deficit: No Time of Onset is Well Established to be Less Than 270 Minute Before Treatment Would Begin: No Risk/Benefit Discussed With Patient/Family Member Present: No Past Medical History - Provider Review Nursing Documentation Reviewed: Yes - Past History Past History: No Previous - Infectious Disease Hx of Infectious Diseases: None - Cardiac Hx Hypertension: Yes - Pulmonary Hx Respiratory Disorders: No - Neurological HX Cerebrovascular Accident: Yes - Integumentary Hx Dermatological Disorder: Yes Other/Comment: rle +1 pitting edema/ ble dry multiple discolorations to skin - Musculoskeletal/Rheumatological Hx Falls: No - Gastrointestinal Hx Gastroesophageal Reflux: Yes HX Swallowing Problems: Yes (can't tolerated liquids) Other/Comment: diet nectar/thickit - Genitourinary/Gynecological Hx Incontinence: Yes (urine and stool) Hx Prostate Problems: Yes (bph) - Psychiatric Hx Substance Use: No - Anesthesia Hx Anesthesia: Yes Hx Anesthesia Reactions: No Hx Malignant Hyperthermia: No Family/Social History - Review Nursing documentation reviewed.: Yes Allergies/Home Meds Allergies/Adverse Reactions: Allergies No Known Allergies Allergy (Verified 09/02/18 10:48) Home Medications: Home Meds Medication Instructions Recorded Confirmed RX: Acetaminophen [Tylenol 325mg 650 mg PO Q4 PRN 04/04/18 09/02/18 tab] RX: Aspirin [Aspirin Chewable] 81 mg PO DAILY 04/04/18 09/02/18 RX: Atorvastatin [Lipitor] 10 mg PO DAILY 04/04/18 09/02/18 RX: Digoxin [Digitek] 0.125 mg PO DAILY 04/04/18 09/02/18 RX: Docusate [Colace] 100 mg PO DAILY PRN 04/04/18 09/02/18 RX: Dutasteride [Avodart] 0.5 mg PO DAILY 04/04/18 09/02/18 RX: Pantoprazole [Protonix Inj] 40 mg PO DAILY 04/04/18 09/02/18 RX: Tamsulosin [Flomax] 0.4 mg PO DAILY 04/04/18 09/02/18 Zolpidem [Ambien] 5 mg PO HS 09/02/18 09/02/18 [id number] CD [Cardizem CD] 120 mg PO DAILY 09/02/18 09/02/18 Review of Systems - Physician Review All systems were reviewed & negative as marked: Yes - Review of Systems Systems not reviewed;Unavailable: Altered Mental Status (Son noting AMS) Constitutional: Other (son notes patient is lethargic, mild right sided weakness). absent: Normal Neurological: Speech Changes (Son notes patient has slurred speech), Other (son notes unsteady gait, walks on baseline). absent: Normal ED Stroke Physical Exam - Physical Exam Physical Exam Limitations: Other (Baseline demented ) Vital Signs Reviewed: Yes Temperature: Afebrile Blood Pressure: Hypertensive (at 165/84) Pulse: Tachycardic (at 105) Respiratory Rate: Normal Finger Stick Blood Glucose: 100 Medical Decision Making ED Course and Treatment: 09/02/18 09:03 Impression: 83 year old male brought in to the emergency department by EMS after son found patient on floor, lethargic with AMS and slurred speech at 08:00 this morning. Differential Diagnosis included but are not limited to: ro cva Plan: -- CT of head/neck code stroke -- CT of head w/o (code stroke) -- EKG -- Labs -- CBC (with differential) -- Partial Thromboplastin -- Prothrombin Time -- X-Ray of chest -- IV fluids -- manager graphic -- Urinalysis -- Reassess and disposition Prior Visits: Notes and results from previous visits were reviewed. Patient was last seen in the emergency department on 04/04/18 for further evaluation on possible GI bleed. Patient was hospitalized in stable condition, diagnosed with epigastric pain, nausea, vomiting, weakness, renal insufficiency, GI bleed, and urinary retention. Progress Notes: 09/02/18 09:[address] Peralta. patient took Aspirin today. not tpa candidate. accepted by hosptialist 09/03/18 19:34 case - RAD Interpretation Narrative RAD Interpretations (Text): CT of head/neck reviewed by radiologist, shows: Dictator : Fiona Donohue MD Report Date : 09/02/2018 09:45:31 FINDINGS: HEAD: There are coarse atherosclerotic calcifications in the cavernous carotid arteries right: The intracranial internal carotid artery, and anterior and middle cerebral arteries are widely patent. The right A1 segment is hypoplastic, an anatomic variant. Left: The intracranial internal carotid artery, and anterior and middle cerebral arteries are widely patent. Posterior circulation: The visualized intracranial vertebral arteries, basilar artery and posterior cerebral arteries are widely patent. There is no endoluminal filling defect to suggest thrombus. There is no intracranial saccular aneurysm. NECK: There is a 2 vessel aortic arch with common origins of the innominate and left common carotid arteries. There are atherosclerotic calcifications at the origin of the great vessels without significant stenosis. There is no stenosis at the origins of the great vessels at the level of the aortic arch. There are atherosclerotic calcifications in the distal right common carotid artery and proximal right internal carotid artery without significant stenosis. There are moderate atherosclerotic calcifications in the proximal left internal carotid artery without significant stenosis. Right Carotid: On the right, the common carotid, internal carotid and external carotid arteries are widely patent. There is no hemodynamically significant stenosis in the internal carotid artery by NASCET criteria. Left Carotid: On the left, the common carotid, internal carotid and external carotid arteries are widely patent. There is no hemodynamically significant stenosis in the internal carotid artery by NASCET criteria. The vertebral arteries are widely patent. The visualized soft tissues of the neck are normal. The lung apices are clear. There is a multinodular thyroid gland. IMPRESSION: 1. No evidence of endoluminal thrombus,occlusion or definite significant stenosis in the intracranial arteries. 2. No evidence of hemodynamically significant stenosis in the internal carotid arteries. 3. Patent bilateral vertebral arteries. - CT of head reviewed by radiologist, shows: Dictator : Fiona Donohue MD Report Date : 09/02/2018 09:23:49 FINDINGS: HEMORRHAGE: No intracranial hemorrhage. BRAIN: There are moderate chronic microangiopathic changes. There are old lacunar infarctions in the centrum semiovale, hahn radiata, right basal ganglia and right thalamus. There is an old left posterior inferior cerebellar artery territory infarction. There is no mass, mass effect or abnormal extra-axial fluid collection. VENTRICLES: There is mild age-related global parenchymal volume loss and proportionate enlargement of the ventricles and cortical sulci. CALVARIUM: The skull base and calvarium are normal. PARANASAL SINUSES: There are aerosolized secretions in the sphenoid sinus. The remaining included paranasal sinuses are clear. MASTOID AIR CELLS: Predominantly clear. OTHER FINDINGS: None. IMPRESSION: No acute intracranial abnormality. Moderate chronic microangiopathic changes and mild age-related global parenchymal volume loss. Old infarctions in bilateral centrum semiovale, hahn radiata, right thalamus and right basal ganglia. Old left PICA territory infarction involving the posterior inferior cerebellum. The important findings were discussed with Dr. Love in the ER on 09/02/2018 at 9:17 a.m. X-Ray of chest reviewed by radiologist, shows: Dictator : Fiona Donohue MD Report Date : 09/02/2018 10:34:22 FINDINGS: LUNGS: The lungs are well inflated and clear. PLEURA: No pleural effusions or pneumothorax. CARDIOVASCULAR: There is mild cardiomegaly. Atherosclerotic aortic arch calcifications are present. OSSEOUS STRUCTURES: Within normal limits for the patient's age. VISUALIZED UPPER ABDOMEN: Normal. OTHER FINDINGS: None. IMPRESSION: No active pulmonary disease. Radiology Orders: 09/02/18 09:04 CTA HEAD/NECK CODE STROKE [CT] Stat HEAD W/O (CODE STROKE) [CT] Stat CHEST PORTABLE [RAD] Stat Vice President [employer]: Radiologist - EKG Interpretation EKG Interpretation (Text): 09/02/18 09:49 EKG: Ordered, reviewed, and independently interpreted the EKG. Rate : 105 BPM Rhythm : Atrial fibrillation with rapid ventricular response Interpretation : Nonspecific T wave abnormality, probably digitalis effect Interpreted by ED Physician: Yes Type: 12 lead EKG - Medication Orders Current Medication Orders: Sodium Chloride (Sodium Chloride 0.9%) 1,000 mls @ 100 mls/hr IV .Q10H MATA - Scribe Statement The provider has reviewed the documentation as recorded by the Scribe Pallavi Riggins All medical record entries made by the Scribe were at my direction and pe rsonally dictated by me. I have reviewed the chart and agree that the record accurately reflects my personal performance of the history, physical exam, medical decision making, and the department course for this patient. I have also personally directed, reviewed, and agree with the discharge instructions and disposition. NIHSS Scale ([place]) Time Performed: 09:38 - How Severe is the Stoke Baseline Level of Consciousness: 2=Obtunded LOC to Questions: 2=Neither correct LOC to commands: 2=Neither correct Best Gaze: 0=Normal Visual: 0=No visual loss Facial: 0=Normal Motor Arm - Left: 3=No effort against gravity (falls immediately) Motor Arm - Right: 3=No effort against gravity (falls immediately) Motor Leg - Left: 3=No effort against gravity (falls immediately) Motor Leg - Right: 3=No effort against gravity (falls immediately) Limb Ataxia: 2=Present both Sensory: 0=Normal Best Language: 0=No aphasia Dysarthia: 1=Mild to moderate slurring Extinction & Inattention (Neglect): 0=Normal, no object Score: 21 Risk Level: Severe Stroke Risk Disposition/Present on Arrival - Present on Arrival Any Indicators Present on Arrival: No History of DVT/PE: No History of Uncontrolled Diabetes: No Urinary Catheter: Yes (inserted for retention in room) History of Decub. Ulcer: No History Surgical Site Infection Following: None - Disposition Have Diagnosis and Disposition been Completed?: Yes Diagnosis: Altered mental status, Weakness Disposition: HOSPITALIZED Disposition Time: 06:00 Patient Problems: Current Active Problems Problem Status Onset Acute encephalopathy Acute Altered mental status Acute Ischemic stroke Acute Weakness Acute Condition: STABLE
[2018-09-02 09:46] LABS: BASO # 0.02 K/mm3 (0.0-2.0); BASO % 0.3 % (0.0-3.0); EOS # 0.1 (0.0-0.7); EOS % 1.7 % (1.5-5.0); GRAN # 4.65 (1.4-6.5); GRAN % 67.2 % (50.0-68.0); HEMOGLOBIN 12.4 g/dL (14.0-18.0); LYMPH # 1.4 (1.2-3.4); LYMPH % 19.8 % (22.0-35.0); MEAN CELL VOLUME 83.3 fl (80.0-105.0); MEAN CORPUSCULAR HEMOGLOBIN 27.2 pg (25.0-35.0); MEAN CORPUSCULAR HGB CONC 32.6 g/dl (31.0-37.0); MEAN PLATELET VOLUME 9.5 fl (7.0-11.0); MONO # 0.8 (0.1-0.6); RBC 4.56 10^6/uL (3.5-6.1); RED CELL DISTRIBUTION WIDTH 14.1 % (11.5-14.5); WHITE BLOOD COUNT 6.9 10^3/ul (4.5-11.0)
--- NOTE | 2018-09-02 09:49 | CT ---
PROCEDURE: CTA HEAD AND NECK WITH CONTRAST HISTORY: code stroke COMPARISON: None available. TECHNIQUE: Initial noncontrast head CT was performed. Subsequently, CT angiogram of the head and neck were performed after the intravenous administration of 80 mL of Omnipaque 350. Contiguous 1.5mm thick images were obtained in the axial plane of the neck. 2-D coronal and sagittal MPR images were obtained. Imaging postprocessing was performed with 3-D images also obtained. A delayed contrast head CT was also obtained. This CT exam was performed using one or more of the following dose reduction techniques: Automated exposure control, adjustment of the mA and/or kV according to patient size, and/or use of iterative reconstruction technique. Contrast dose: 150 mL Omnipaque 350 Radiation dose: Total exam DLP = 542.60 mGy-cm. FINDINGS: HEAD: There are coarse atherosclerotic calcifications in the cavernous carotid arteries right: The intracranial internal carotid artery, and anterior and middle cerebral arteries are widely patent. The right A1 segment is hypoplastic, an anatomic variant. Left: The intracranial internal carotid artery, and anterior and middle cerebral arteries are widely patent. Posterior circulation: The visualized intracranial vertebral arteries, basilar artery and posterior cerebral arteries are widely patent. There is no endoluminal filling defect to suggest thrombus. There is no intracranial saccular aneurysm. NECK: There is a 2 vessel aortic arch with common origins of the innominate and left common carotid arteries. There are atherosclerotic calcifications at the origin of the great vessels without significant stenosis. There is no stenosis at the origins of the great vessels at the level of the aortic arch. There are atherosclerotic calcifications in the distal right common carotid artery and proximal right internal carotid artery without significant stenosis. There are moderate atherosclerotic calcifications in the proximal left internal carotid artery without significant stenosis. Right Carotid: On the right, the common carotid, internal carotid and external carotid arteries are widely patent. There is no hemodynamically significant stenosis in the internal carotid artery by NASCET criteria. Left Carotid: On the left, the common carotid, internal carotid and external carotid arteries are widely patent. There is no hemodynamically significant stenosis in the internal carotid artery by NASCET criteria. The vertebral arteries are widely patent. The visualized soft tissues of the neck are normal. The lung apices are clear. There is a multinodular thyroid gland. IMPRESSION: 1. No evidence of endoluminal thrombus,occlusion or definite significant stenosis in the intracranial arteries. 2. No evidence of hemodynamically significant stenosis in the internal carotid arteries. 3. Patent bilateral vertebral arteries.
[2018-09-02] MEDS: Sodium Chloride 0.9% 1,000 ML IV SCH ×2 (10:03→19:00)
--- NOTE | 2018-09-02 10:38 | RAD ---
Date of service: 09/02/2018 HISTORY: Code Stroke COMPARISON: 04/04/2018. FINDINGS: LUNGS: The lungs are well inflated and clear. PLEURA: No pleural effusions or pneumothorax. CARDIOVASCULAR: There is mild cardiomegaly. Atherosclerotic aortic arch calcifications are present. OSSEOUS STRUCTURES: Within normal limits for the patient's age. VISUALIZED UPPER ABDOMEN: Normal. OTHER FINDINGS: None. IMPRESSION: No active pulmonary disease.
[2018-09-02 11:08] LABS: INR 1.14; PARTIAL THROMBOPLASTIN TIME 22.8 Seconds (25.1-36.5); PROTHROMBIN TIME 13.2 SECONDS (9.4-12.5)
[2018-09-02 11:15] LABS: ALB/GLOB RATIO 1.2 (1.1-1.8); ALBUMIN 4.1 g/dL (3.0-4.8); ALT/SGPT 23 U/L (7-56); AST/SGOT 24 U/L (17-59); BLOOD UREA NITROGEN 16 mg/dL (7-21); CALCIUM 9.5 mg/dL (8.4-10.5); GFR NON-AFRICAN AMERICAN 58; HDL CHOLESTEROL 61 mg/dL (29-60)
[2018-09-02 11:26] LABS: LDL CHOLESTEROL 67 mg/dL (0-129); TROPONIN I < 0.01 ng/mL
[2018-09-02 13:47] VITALS: BMI 26.8
[2018-09-02] MEDS ORDERED: Pneumococcal 23-Valent Vaccine IM ONE (13:48)
[2018-09-02] MEDS ORDERED: Influenza Vaccine 60 mcg/0.5 mL SYR (4YR UP) IM ONE (13:48)
[2018-09-02 14:13] LABS: URINE BILIRUBIN NEGATIVE (NEGATIVE); URINE BLOOD TRACE-LYSED (NEGATIVE); URINE GLUCOSE (UA) NEGATIVE (NEGATIVE); URINE LEUKOCYTE ESTERASE TRACE Leu/uL (NEGATIVE); URINE PROTEIN NEGATIVE mg/dL (<30 mg/dL); URINE UROBILINOGEN 0.2 E.U./dL (<1 E.U./dL)
[2018-09-02 14:19] LABS: URINE APPEARANCE CLEAR (CLEAR); URINE COLOR YELLOW (YELLOW)
[2018-09-02 14:26] LABS: URINE BACTERIA MANY (NEG)
--- NOTE | 2018-09-02 15:50 | CARD ---
APPROVED REPORT Date of service: 09/02/2018 EKG Measurement Heart [id number] <Conclusion> Atrial fibrillation with rapid ventricular response Nonspecific T wave abnormality, probably digitalis effect Abnormal ECG
--- NOTE | 2018-09-02 21:12 | CP.PCM.CON ---
History of Present Illness - History of Present Illness History of Present Illness: Neurology Consultation Note: Mr. Simms is an 83-year-old man, who was referred to me by Dr. Acosta, and has a past medical history of CHF, atrial fibrillation (on Eliquis), previous ischemic strokes with residual right side weakness, dementia, who was last seen normal the previous night prior to his son going for an overnight shift, and was found the following morning on the floor, lethargic and unable to ambulate normally. EMS was called and he was found to be confused with speech difficulty. He was outside the 4.5 hour time window for IV tPA. CT scan of the head showed multiple chronic subcortical and posterior circulation infarcts, but no acute findings. CTA of the head/neck did not show any occlusion. Today, the patient continues to be confused, dysarthric and had generalized weakness with right facial droop. Review of Systems - Review of Systems Systems not reviewed;Unavailable: Altered Mental Status Past Patient History - Infectious Disease Hx of Infectious Diseases: None - Past Medical History & Family History Past Medical History?: Yes - Past Social History Smoking Status: Never Smoked - CARDIAC Hx Cardiac Disorders: Yes Hx Cardia Arrhythmia: Yes (afib) Hx Hypercholesterolemia: Yes Hx Hypertension: Yes Hx Peripheral Edema: Yes (+1 ble) Hx Peripheral Vascular Disease: Yes (cold ankles and feet) - PULMONARY Hx Respiratory Disorders: Yes (pt has home oxygen as per son) - NEUROLOGICAL Hx Neurological Disorder: Yes HX Cerebrovascular Accident: Yes (cva x3) Hx Dementia: Yes (mild) Other/Comment: pt had 3 cva's in 2018 with right side weakness, was in [facility] for rehab and was discharged home, home care ran out - HEENT Hx HEENT Problems: Yes Other/Comment: nector & thick it, son now introducing cut up solid food from meals on wheels, is able to swallow ensure as per son - RENAL Hx Chronic Kidney Disease: No - ENDOCRINE/METABOLIC Hx Endocrine Disorders: No - HEMATOLOGICAL/ONCOLOGICAL Hx Blood Disorders: No - INTEGUMENTARY Hx Dermatological Problems: Yes Other/Comment: rle +1 pitting edema/ ble dry multiple discolorations to skin, dry leathery skin, old scar to right knee - MUSCULOSKELETAL/RHEUMATOLOGICAL Hx Falls: Yes (found on floor today) - GASTROINTESTINAL Hx Gastrointestinal Disorders: Yes Hx Gastroesophageal Reflux: Yes HX Swallowing Problems: Yes (can't tolerated liquids) Other/Comment: diet nectar/thickit, as per son and he is starting to introduce c ut upf food from meals on wheels and pt can drink ensure - GENITOURINARY/GYNECOLOGICAL Hx Genitourinary Disorders: Yes (retention) Hx Incontinence: Yes (urine and stool) Hx Prostate Problems: Yes (bph) - PSYCHIATRIC Hx Substance Use: No - SURGICAL HISTORY Hx Surgeries: No - ANESTHESIA Hx Anesthesia: Yes Hx Anesthesia Reactions: No Hx Malignant Hyperthermia: No Meds Allergies/Adverse Reactions: Allergies Allergy/AdvReac Type Severity Reaction Status Date / Time No Known Allergies Allergy Verified 09/02/18 10:48 - Medications Medications: Current Medications Acetaminophen (Tylenol 325mg Tab) 650 mg PO Q4 PRN PRN Reason: Fever >100.4 F Apixaban (Eliquis) 2.5 mg PO BID [facility]; Protocol Aspirin (Aspirin Chewable) 81 mg PO DAILY [facility] Atorvastatin Calcium (Lipitor) 10 mg PO DAILY [facility] Diltiazem HCl (Cardizem Cd) 120 mg PO DAILY [facility] Sodium Chloride (Sodium Chloride 0.9%) 1,000 mls @ 100 mls/hr IV .Q10H [facility] Last Admin: 09/02/18 19:00 Dose: Not Given Ceftriaxone Sodium (Rocephin 1 Gram Ivpb) 1 gm in 100 mls @ 100 mls/hr IVPB DAILY [facility]; Protocol Pantoprazole Sodium (Protonix Inj) 40 mg IV DAILY MATA Tamsulosin HCl (Flomax) 0.4 mg PO DAILY [facility] Physical Exam - Constitutional Appears: Well - Head Exam Head Exam: ATRAUMATIC, NORMAL INSPECTION, NORMOCEPHALIC - Eye Exam Eye Exam: EOMI, Normal appearance, PERRL - ENT Exam ENT Exam: Mucous Membranes Moist, Normal Exam - Neck Exam Neck exam: Positive for: Normal Inspection - Respiratory Exam Respiratory Exam: Clear to Auscultation Bilateral, NORMAL BREATHING PATTERN - Cardiovascular Exam Cardiovascular Exam: REGULAR RHYTHM, +S1, +S2 - GI/Abdominal Exam GI & Abdominal Exam: Normal Bowel Sounds, Soft. absent: Tenderness - Rectal Exam Rectal Exam: Deferred - Extremities Exam Extremities exam: Positive for: normal inspection, pedal edema, pedal pulses present - Back Exam Back exam: NORMAL INSPECTION - Neurological Exam Neurological exam: Abnormal Gait, Altered, CN II-XII Intact Additional comments: Speech is dysarthric and aphasic. He did not follow commands consistently. He moved all extremities, but had generalized weakness. Lower extremities were 2/5 bilaterally. Upper extremities were 3/5 bilaterally. He had a right facial droop. He was staring and did not follow my fingers for ocular examination. - Psychiatric Exam Psychiatric exam: Depressed, Flat Affect - Skin Skin Exam: Dry, Intact, Normal Color, Warm Results - Vital Signs Recent Vital Signs: Last Vital Signs Temp 97.5 F L 09/02/18 18:00 Pulse 115 H 09/02/18 18:00 Resp 21 09/02/18 18:00 BP 151/95 H 09/02/18 18:00 Pulse Ox 98 09/02/18 13:35 - Labs Result Diagrams: 09/02/18 09:30 09/02/18 10:27 Labs: Laboratory Results - last 24 hr 09/02/18 09/02/18 09/02/18 09:30 09:30 09:35 WBC 6.9 RBC 4.56 Hgb 12.4 L Hct 38.0 L MCV 83.3 MCH 27.2 MCHC 32.6 RDW 14.1 Plt Count 349 MPV 9.5 Gran % 67.2 Lymph % (Auto) 19.8 L [place] % (Auto) 11.0 H Eos % (Auto) 1.7 Baso % (Auto) 0.3 Gran # 4.65 Lymph # (Auto) 1.4 [place] # (Auto) 0.8 H Eos # (Auto) 0.1 Baso # (Auto) 0.02 PT INR APTT Sodium Potassium Chloride Carbon Dioxide Anion Gap BUN Creatinine Est GFR ( Amer) Est GFR (Non-Af Amer) POC Glucose (mg/dL) Random Glucose Hemoglobin A1c 6.2 Calcium Total Bilirubin AST ALT Alkaline Phosphatase Total Creatine Kinase Troponin I Total Protein Albumin Globulin Albumin/Globulin Ratio Triglycerides Cholesterol LDL Cholesterol Direct HDL Cholesterol Urine Color Urine Appearance Urine pH Ur Specific [place] Urine Protein Urine Glucose (UA) Urine Ketones Urine Blood Urine Nitrate Urine Bilirubin Urine Urobilinogen Ur Leukocyte Esterase Urine RBC Urine WBC Ur Epithelial Cells Urine Bacteria Urine Other Digoxin 2.1 H Blood Type Antibody Screen BBK History Checked 09/02/18 09/02/18 09/02/18 10:27 10:27 10:30 WBC RBC Hgb Hct MCV MCH MCHC RDW Plt Count MPV Gran % Lymph % (Auto) [place] % (Auto) Eos % (Auto) Baso % (Auto) Gran # Lymph # (Auto) [place] # (Auto) Eos # (Auto) Baso # (Auto) PT 13.2 H INR 1.14 APTT 22.8 L Sodium 137 Potassium 4.5 Chloride 102 Carbon Dioxide 26 Anion Gap 14 BUN 16 Creatinine 1.2 Est GFR ( Amer) > 60 Est GFR (Non-Af Amer) 58 POC Glucose (mg/dL) Random Glucose 87 Hemoglobin A1c Calcium 9.5 Total Bilirubin 0.6 AST 24 ALT 23 Alkaline Phosphatase 91 Total Creatine Kinase 122 Troponin I < 0.01 Total Protein 7.5 Albumin 4.1 Globulin 3.4 Albumin/Globulin Ratio 1.2 Triglycerides 48 Cholesterol 158 LDL Cholesterol Direct 67 HDL Cholesterol 61 H Urine Color Urine Appearance Urine pH Ur Specific [place] Urine Protein Urine Glucose (UA) Urine Ketones Urine Blood Urine Nitrate Urine Bilirubin Urine Urobilinogen Ur Leukocyte Esterase Urine RBC Urine WBC Ur Epithelial Cells Urine Bacteria Urine Other Digoxin Blood Type B POSITIVE Antibody Screen Negative BBK History Checked Patient has bt 09/02/18 09/02/18 14:00 17:42 WBC RBC Hgb Hct MCV MCH MCHC RDW Plt Count MPV Gran % Lymph % (Auto) [place] % (Auto) Eos % (Auto) Baso % (Auto) Gran # Lymph # (Auto) [place] # (Auto) Eos # (Auto) Baso # (Auto) PT INR APTT Sodium Potassium Chloride Carbon Dioxide Anion Gap BUN Creatinine Est GFR ( Amer) Est GFR (Non-Af Amer) POC Glucose (mg/dL) 85 Random Glucose Hemoglobin A1c Calcium Total Bilirubin AST ALT Alkaline Phosphatase Total Creatine Kinase Troponin I Total Protein Albumin Globulin Albumin/Globulin Ratio Triglycerides Cholesterol LDL Cholesterol Direct HDL Cholesterol Urine Color Yellow Urine Appearance Clear Urine pH 7.0 Ur Specific [place] <= 1.005 Urine Protein Negative Urine Glucose (UA) Negative Urine Ketones Negative Urine Blood Trace-lysed H Urine Nitrate Negative Urine Bilirubin Negative Urine Urobilinogen 0.2 Ur Leukocyte Esterase Trace H Urine RBC 2 - 5 Urine WBC 5 - 10 Ur Epithelial Cells None Urine Bacteria Many Urine Other Uyeast Digoxin Blood Type Antibody Screen BBK History Checked Assessment & Plan (1) Acute encephalopathy Assessment and Plan: This may be due to new ischemic stroke, or could be due to underlying infection or metabolic causes. I recommend further evaluation and treatment as follows: 1. Telemetry 2. MRI brain without contrast 3. Echocardiogram 4. Check HbA1c, B12, folate, lipid panel, vitamin D level 5. Continue Eliquis 2.5 mg BID and Aspirin 81 mg daily for secondary stroke prevention, if he fails swallow eval, continue aspirin 300 mg [place] 6. Continue Lipitor 7. PT/OT eval and treatment 8. Case management consult 9. Treat underlying infection and dehydration Thank you very much for this consultation. Status: Acute
[2018-09-03] MEDS: Sodium Chloride 0.9% 1,000 ML IV SCH (01:20)
--- NOTE | 2018-09-03 04:35 | HP ---
DATE OF EXAM: HISTORY OF PRESENT ILLNESS: The patient is an 83-year-old who is known to me from multiple previous admission, was brought in by son, who works overnight; when he came in the morning, he found the father to be lethargic, not responding to his verbal commands, and he was hardly opening eye on verbal commands. Son called ambulance, and he was brought to the Emergency Room. There is no recent history of fall, trauma, or head injury. According to son, he was able to walk few steps to sit from chair to the bed, but for the last 2 weeks, he has been increasingly lethargic and has been bed bound. PAST MEDICAL HISTORY: Significant for 1. Hypertension. 2. Chronic AFib. 3. Dementia. 4. History of CVA with right-sided weakness. 5. Hyperlipidemia. ALLERGIES: HE IS NOT ALLERGIC TO ANY MEDICATIONS. MEDICATIONS AT THE INTERMEDIATE: He is on diltiazem 60 mg three times a day, Flomax 0.4 daily, Protonix 40 daily, Avodart 0.5 daily, digoxin 0.125 daily, Plavix 75 daily, atorvastatin 40 mg daily, aspirin 81 daily, and Eliquis 2.5 daily. SOCIAL HISTORY: He lives with his son and not very ambulatory at home. PHYSICAL EXAMINATION: GENERAL: He opens eyes on verbal command, but does not able to communicate. VITAL SIGNS: He is afebrile. Pulse 100, respirations 21, blood pressure 151/95. HEART: S1 and S2 audible. LUNGS: Bilateral fair airflow. No rhonchi or crackle. ABDOMEN: Soft, nontender, no rebound or guarding. NEUROLOGIC: He is lethargic. EXTREMITIES: Bilateral leg no edema. LABORATORY DATA: WBC 6.9, hemoglobin 12.4, hematocrit 38, and platelet 249. PT 13.2, INR 1.14. Chemistry: Sodium 137, potassium 4.5, chloride 102, CO2 of 26, BUN 16, creatinine 1.2, blood sugar 58. LFTs are within normal limits. Urine shows trace leukocytes, and dig level is 2.1. He had a CT scan of the neck and head that shows no evidence of thrombus occlusion or stenosis. Moderate chronic microangiopathic changes that are age appropriate. He has old infarction bilateral centrum semiovale, hahn radiata, right thalamus, and right basal ganglia and old [place] territory infarct. EKG shows AFib . ASSESSMENT AND PLAN: 1. Altered mental status. 2. Dementia. 3. Chronic atrial fibrillation. 4. History of hypertension. 5. Cardiomyopathy. 6. Deconditioning and difficulty walking. 7. History of gastrointestinal bleed. 8. History of previous cerebrovascular accident. 9. Renal insufficiency. 10. Pyuria. PLAN: We will keep the patient n.p.o., will get swallowing eval, start him on IV fluid, will get neuro evaluation, and start empirically on Rocephin. We will reevaluate the patient. Merlin Atkinson MD
[2018-09-03] MEDS: diltiaZEM 120 mg/24 Hours CD Cap PO SCH (10:46)
[2018-09-03] MEDS: cefTRIAXone 1 gm 1 GM/100 ML BAG IVPB SCH (10:47)
[2018-09-03 11:09] LABS: BASO # 0.02 K/mm3 (0.0-2.0); BASO % 0.3 % (0.0-3.0); EOS # 0.2 (0.0-0.7); EOS % 3.5 % (1.5-5.0); GRAN # 3.36 (1.4-6.5); GRAN % 56.7 % (50.0-68.0); HEMOGLOBIN 11.5 g/dL (14.0-18.0); LYMPH # 1.7 (1.2-3.4); MEAN CELL VOLUME 83.4 fl (80.0-105.0); MEAN CORPUSCULAR HEMOGLOBIN 27.3 pg (25.0-35.0); MEAN CORPUSCULAR HGB CONC 32.7 g/dl (31.0-37.0); MEAN PLATELET VOLUME 8.8 fl (7.0-11.0); MONO # 0.7 (0.1-0.6); MONO % 11.5 % (1.0-6.0); RBC 4.22 10^6/uL (3.5-6.1); RED CELL DISTRIBUTION WIDTH 14.3 % (11.5-14.5); WHITE BLOOD COUNT 5.9 10^3/ul (4.5-11.0)
[2018-09-03 11:23] LABS: ALB/GLOB RATIO 1.1 (1.1-1.8); ALBUMIN 3.4 g/dL (3.0-4.8); ALT/SGPT 21 U/L (7-56); AST/SGOT 20 U/L (17-59); BLOOD UREA NITROGEN 15 mg/dL (7-21); CALCIUM 8.8 mg/dL (8.4-10.5); GFR NON-AFRICAN AMERICAN 53
--- NOTE | 2018-09-03 15:49 | MRI ---
Date of service: 09/03/2018 PROCEDURE: MRI BRAIN WITHOUT CONTRAST HISTORY: lethargic, code stroke COMPARISON: None available. TECHNIQUE: Multiplanar, multisequence MR images of the brain were obtained without intravenous contrast enhancement. FINDINGS: HEMORRHAGE: None DWI: No evidence of an acute or early subacute infarction. BRAIN PARENCHYMA: No mass effect or edema. Severe chronic microvascular changes are seen in the periventricular white matter. VENTRICLES: Unremarkable. No hydrocephalus. CRANIUM: Unremarkable. ORBITS: Grossly unremarkable. PARANASAL SINUSES/MASTOIDS: Clear VASCULAR SYSTEM: Skull base flow voids intact. OTHER FINDINGS: None. IMPRESSION: No acute intracranial findings
--- NOTE | 2018-09-03 15:58 | CP.PCM.PN ---
<Marissa Munson - Last Filed: 09/03/18 16:35> Subjective - Date & Time of Evaluation Date of Evaluation: 09/03/18 Time of Evaluation: 15:58 - Subjective Subjective: Marissa Munson, PGY2, Neurology Progress Note for Dr. Nettles: Patient seen and examined at bedside. No acute events overnight. Patient continues to have some slurred speech, but mental status is improving. Oriented to person and place. Responds to commands appropriately. Moving all extremities, UE stronger than LE bilaterally. NIHSS = 10 this morning. EEG and brain MRI done today. 12-point ROS obtained and negative, except as per HPI. Objective - Vital Signs/Intake and Output Vital Signs (last 24 hours): Temp Pulse Resp BP Pulse Ox 98.4 F 96 H 20 153/84 H 96 09/03/18 12:00 09/03/18 12:00 09/03/18 12:00 09/03/18 12:00 09/03/18 00:01 Intake and Output: 09/03/18 09/03/18 06:59 18:59 Intake Total 500 Balance 500 - Medications Medications: Current Medications Acetaminophen (Tylenol 325mg Tab) 650 mg PO Q4 PRN PRN Reason: Fever >100.4 F Apixaban (Eliquis) 2.5 mg PO BID [facility]; Protocol Last Admin: 09/03/18 10:46 Dose: 2.5 mg Aspirin (Aspirin Chewable) 81 mg PO DAILY [facility] Last Admin: 09/03/18 10:46 Dose: 81 mg Atorvastatin Calcium (Lipitor) 10 mg PO DAILY [facility] Last Admin: 09/03/18 10:46 Dose: 10 mg Diltiazem HCl (Cardizem Cd) 120 mg PO DAILY [facility] Last Admin: 09/03/18 10:46 Dose: 120 mg Ceftriaxone Sodium (Rocephin 1 Gram Ivpb) 1 gm in 100 mls @ 100 mls/hr IVPB DAILY [facility]; Protocol Stop: 09/07/18 10:59 Last Admin: 09/03/18 10:47 Dose: 100 mls/hr Pantoprazole Sodium (Protonix Inj) 40 mg IV DAILY [facility] Last Admin: 09/03/18 10:47 Dose: 40 mg Tamsulosin HCl (Flomax) 0.4 mg PO DAILY [facility] Last Admin: 09/03/18 10:47 Dose: 0.4 mg - Labs Labs: 09/03/18 11:00 09/03/18 11:00 PT 13.2 SECONDS (9.4-12.5) H 09/02/18 10:27 INR 1.14 09/02/18 10:27 APTT 22.8 Seconds (25.1-36.5) L 09/02/18 10:27 - Constitutional Appears: No Acute Distress, Confused, Chronically Ill - Head Exam Head Exam: ATRAUMATIC, NORMOCEPHALIC - Eye Exam Eye Exam: EOMI, PERRL. absent: Conjunctival injection, Nystagmus, Scleral icterus Pupil Exam: NORMAL ACCOMODATION, PERRL. absent: Irregular, Miosis, Unequal - ENT Exam ENT Exam: Mucous Membranes Moist - Neck Exam Neck Exam: Full ROM - Respiratory Exam Respiratory Exam: Clear to Ausculation Bilateral, NORMAL BREATHING PATTERN. absent: Accessory Muscle Use, Rhonchi, Wheezes - Cardiovascular Exam Cardiovascular Exam: RRR, +S1, +S2. absent: Murmur - GI/Abdominal Exam GI & Abdominal Exam: Soft, Normal Bowel Sounds. absent: Tenderness, Organomegaly - Back Exam Back Exam: NORMAL INSPECTION - Neurological Exam Neurological Exam: Alert, Awake Additional comments: Awake, alert, oriented to person and place Mildly Slurred speech No sensory deficits noted Moving all extremities 3/5 muscle strength UE b/l; 2/5 muscle strength LE b/l - Psychiatric Exam Psychiatric exam: Flat Affect - Skin Skin Exam: Normal Color, Warm Assessment and Plan - Assessment and Plan (Free Text) Assessment: 83M with PMH of CHF, atrial fibrillation (on Eliquis), previous ischemic strokes with residual right side weakness, dementia, admitted for altered mental status. Neurology consulted for code stroke/AMS: Likely toxic metabolic encephalopathy 2/2 underlying UTI, ruled out acute CVA - Head CT: multiple chronic subcortical and posterior circulation infarcts, but no acute findings - Brain MRI today reviewed and discussed with son at bedside, no acute stroke noted. Old infarcts seen. - EEG: pending read - c/w Aspirin 300mg HI - c/w Abx per primary team for UTI - Neuro checks - Fall precautions - PT/OT eval - Failed swallow eval. can re-eval tomorrow. Monitor Case seen and discussed with Dr. Nettles. <Roberth Nettles - Last Filed: 09/09/18 04:31> Objective - Vital Signs/Intake and Output Vital Signs (last 24 hours): Temp Pulse Resp BP Pulse Ox 98 F 88 18 151/76 H 99 09/05/18 07:30 09/05/18 07:30 09/05/18 07:30 09/05/18 07:30 09/05/18 07:30 - Labs Labs: 09/03/18 11:00 09/03/18 11:00 PT 13.2 SECONDS (9.4-12.5) H 09/02/18 10:27 INR 1.14 09/02/18 10:27 APTT 22.8 Seconds (25.1-36.5) L 09/02/18 10:27 Assessment and Plan (1) Acute encephalopathy Status: Acute Attending/Attestation - Attestation I have personally seen and examined this patient.: Yes I have fully participated in the care of the patient.: Yes I have reviewed all pertinent clinical information, including history, physical exam and plan: Yes Notes (Text): 09/09/18 04:30 I agree with the assessment and plan. Likely toxic-metabolic encephalopathy. Continue treatment of underlying cause.
--- NOTE | 2018-09-03 19:57 | PN ---
DATE: 09/03/2018 SUBJECTIVE: The patient is [id number], seen and examined, looks much more awake and alert, able to communicate, not in any distress. PHYSICAL EXAMINATION: VITAL SIGNS: He is afebrile, pulse 96, respirations 20, blood pressure 153/84. LUNGS: Bilateral fair airflow. No rhonchi or crackle. HEART: S1 and S2 audible. ABDOMEN: Soft. Nontender. No rebound. No guarding. NEUROLOGIC: He is awake, alert, able to communicate, answers simple questions. EXTREMITIES: Bilateral legs, no edema. LABORATORY DATA: WBC is 5.9, hemoglobin 11.5, hematocrit 35.2, platelet 327. Chemistry: Sodium 138, potassium 4.3, chloride 106, CO2 of 25, BUN 15, creatinine 1.3, blood sugar is 76. Digoxin level is 2.1. CT scan of the head is negative. CT of the brain shows no acute intracranial abnormality. ASSESSMENT: 1. Altered mental status, probably dehydration. 2. Hypertension. 3. History of cerebrovascular accident. 4. Chronic atrial fibrillation. 5. History of benign prostatic hyperplasia. 6. Hyperlipidemia. 7. Questionable dysphagia. PLAN: The patient is awaiting for swallowing evaluation. Until that time, we will continue him on IV fluids. We will follow up the patient in a.m. Merlin Atkinson MD
[2018-09-04] MEDS: cefTRIAXone 1 gm 1 GM/100 ML BAG IVPB SCH (09:57)
[2018-09-04] MEDS: diltiaZEM 120 mg/24 Hours CD Cap PO SCH (09:58)
[2018-09-04 12:06] LABS: FOLATE 7.4 ng/mL
[2018-09-04] MEDS: Cholecalciferol 1,000 INTLU TAB PO SCH (12:24)
--- NOTE | 2018-09-04 16:57 | PN ---
DATE: 09/04/2018 SUBJECTIVE: The patient is 83 years old, seen and examined. Looks much more awake and alert, forgetful, with difficulty walking. Recommended by Physical Therapy to be send to subacute rehab. PHYSICAL EXAMINATION: VITAL SIGNS: He is afebrile, pulse 81, respirations 19, and blood pressure 116/61. LUNGS: Bilateral fair airflow. No rhonchi or crackle. HEART: S1 and S2 audible. ABDOMEN: Soft, nontender. No rebound. No guarding. NEUROLOGIC: Patient is awake, alert, oriented. Answers simple questions. EXTREMITIES: Bilateral legs, no edema. LABORATORY EXAM: Blood sugar 74. ASSESSMENT: 1. Altered mental status. 2. Dehydration seems to be improving. 3. Hypertension. 4. Chronic atrial fibrillation. 5. History of benign prostatic hyperplasia. 6. Mild dementia. PLAN: We will discontinue telemetry. Follow up EEG. His MRI, CT scan of the head and neck negative. Encourage ambulation and discuss with [employer]. Plan is to choose for subacute rehab. Once arrangement is made, patient will be discharged. Merlin Atkinson MD
[2018-09-05 08:25] VITALS: BP 151/76; PULSE 88; RESP 18; TEMP 98; O2SAT 99
[2018-09-05] MEDS: Cholecalciferol 1,000 INTLU TAB PO SCH (09:17)
[2018-09-05] MEDS: diltiaZEM 120 mg/24 Hours CD Cap PO SCH (09:17)
[2018-09-05] MEDS ORDERED: Cefpodoxime (Vantin) 200 mg Tab PO SCH (10:00)
--- NOTE | 2018-09-05 14:12 | CP.PCM.PN ---
<Marissa Munson - Last Filed: 09/05/18 14:08> Subjective - Date & Time of Evaluation Date of Evaluation: 09/05/18 Time of Evaluation: 14:08 - Subjective Subjective: Marissa Munson, PGY2, Neurology Progress Note for Dr. Nettles: Patient seen and examined at bedside. No acute events overnight. Patient's slurred speech has improved significantly. Patient is alert, awake, oriented to person and place, making jokes. Denies new focal weakness, staring episodes, nausea, vomiting, fevers. 12-point ROS obtained and negative, except as per HPI. Objective - Vital Signs/Intake and Output Vital Signs (last 24 hours): Temp Pulse Resp BP Pulse Ox 98 F 88 18 151/76 H 99 09/05/18 07:30 09/05/18 07:30 09/05/18 07:30 09/05/18 07:30 09/05/18 07:30 Intake and Output: 09/05/18 09/05/18 06:59 18:59 Intake Total 0 Balance 0 - Medications Medications: Current Medications Acetaminophen (Tylenol 325mg Tab) 650 mg PO Q4 PRN PRN Reason: Fever >100.4 F Last Admin: 09/03/18 21:49 Dose: 650 mg Apixaban (Eliquis) 2.5 mg PO BID [facility]; Protocol Last Admin: 09/05/18 09:18 Dose: 2.5 mg Aspirin (Aspirin Chewable) 81 mg PO DAILY [facility] Last Admin: 09/05/18 09:17 Dose: 81 mg Atorvastatin Calcium (Lipitor) 10 mg PO DAILY [facility] Last Admin: 09/05/18 09:17 Dose: 10 mg Cefpodoxime Proxetil (Vantin) 200 mg PO Q12 [facility] Stop: 09/07/18 10:59 Last Admin: 09/05/18 09:17 Dose: 200 mg Cholecalciferol (Vitamin D) 2,000 intlu PO DAILY [facility] Last Admin: 09/05/18 09:17 Dose: 2,000 intlu Diltiazem HCl (Cardizem Cd) 120 mg PO DAILY [facility] Last Admin: 09/05/18 09:17 Dose: 120 mg Pantoprazole Sodium (Protonix Inj) 40 mg IV DAILY [facility] Last Admin: 09/05/18 09:17 Dose: 40 mg Tamsulosin HCl (Flomax) 0.4 mg PO DAILY [facility] Last Admin: 09/05/18 09:17 Dose: 0.4 mg - Labs Labs: 09/03/18 11:00 09/03/18 11:00 PT 13.2 SECONDS (9.4-12.5) H 09/02/18 10:27 INR 1.14 09/02/18 10:27 APTT 22.8 Seconds (25.1-36.5) L 09/02/18 10:27 - Additional Findings Additional findings: - Constitutional Appears: No Acute Distress, Chronically Ill - Head Exam Head Exam: ATRAUMATIC, NORMOCEPHALIC - Eye Exam Eye Exam: EOMI, PERRL. absent: Conjunctival injection, Nystagmus, Scleral icterus Pupil Exam: NORMAL ACCOMODATION, PERRL. absent: Irregular, Miosis, Unequal - ENT Exam ENT Exam: Mucous Membranes Moist - Neck Exam Neck Exam: Full ROM - Respiratory Exam Respiratory Exam: Clear to Ausculation Bilateral, NORMAL BREATHING PATTERN. absent: Accessory Muscle Use, Rhonchi, Wheezes - Cardiovascular Exam Cardiovascular Exam: RRR, +S1, +S2. absent: Murmur - GI/Abdominal Exam GI & Abdominal Exam: Soft, Normal Bowel Sounds. absent: Tenderness, Organomegaly - Back Exam Back Exam: NORMAL INSPECTION - Neurological Exam Neurological Exam: Alert, Awake, oriented to person and place Additional comments: Mildly Slurred speech, much improved from 09/03, having coversation No sensory deficits noted Moving all extremities 3/5 muscle strength UE b/l; 2/5 muscle strength LE b/l - Psychiatric Exam Psychiatric exam: Normal mood. - Skin Skin Exam: Normal Color, Warm Assessment and Plan - Assessment and Plan (Free Text) Assessment: 83M with PMH of CHF, atrial fibrillation (on Eliquis), previous ischemic strokes with residual right side weakness, dementia, admitted for altered mental status. Neurology consulted for code stroke/AMS: Likely toxic metabolic encephalopathy 2/2 underlying UTI, ruled out acute CVA - Head CT: multiple chronic subcortical and posterior circulation infarcts, but no acute findings - Brain MRI today reviewed and discussed with son at bedside, no acute stroke noted. Old infarcts seen. - EEG: negative for epilletiform activity - c/w Aspirin - c/w Abx per primary team for UTI - c/w rest of management as per primary team Thank you for your consult. Case seen and discussed with Dr. Nettles. <Roberth Nettles - Last Filed: 09/09/18 04:33> Objective - Vital Signs/Intake and Output Vital Signs (last 24 hours): Temp Pulse Resp BP Pulse Ox 98 F 88 18 151/76 H 99 09/05/18 07:30 09/05/18 07:30 09/05/18 07:30 09/05/18 07:30 09/05/18 07:30 - Labs Labs: 09/03/18 11:00 09/03/18 11:00 PT 13.2 SECONDS (9.4-12.5) H 09/02/18 10:27 INR 1.14 09/02/18 10:27 APTT 22.8 Seconds (25.1-36.5) L 09/02/18 10:27 Assessment and Plan (1) Acute encephalopathy Status: Acute Attending/Attestation - Attestation I have personally seen and examined this patient.: Yes I have fully participated in the care of the patient.: Yes I have reviewed all pertinent clinical information, including history, physical exam and plan: Yes Notes (Text): 09/09/18 04:33 I agree with the assessment and plan. Will continue current management for acute encephalopathy. Treat the underlying cause. The patient is improving clinically.
--- NOTE | 2018-09-05 14:36 | PCM.EEG ---
Electroencephalogram Report - Electroencephalogram Report Procedure Date: 09/03/18 Condition of Recording: Awake, Drowsy Medication: ASA, Eliquis, Pantoprazole, Atorvastatin Interpretation: Technical Information: This was a 16 -channel EEG, 1-channel EKG routine EEG performed using an [employer] machine. Electrodes were applied using the 10/20 international placement system. During active states, the EEG contained symmetric 10-20 Hz,20-30 uV activity seen bi-frontally. . During resting wakefulness there was a symmetric posterior dominant rhythm at 8.5-9.5 Hz, 30-50 uV, which was reactive to eye opening and closing. . Drowsiness was associated with fragmentation of the posterior dominant rhythm and with slow roving eye movements. Light sleep was not recorded. Hyperventilation was not performed. Photic stimulation was performed and there were no changes on the record. Focal abnormality; none ECG showed atrial fibrillation. Impression: This is a normal awake and drowsy electroencephalogram.
--- NOTE | 2018-09-06 01:00 | DS ---
HISTORY OF PRESENT ILLNESS: The patient is a 83 years old, seen and examined. He came in initially with altered mental status. He was minimally responsive to wave and verbal and painful commands when his son found him with altered mental status, he was brought to emergency room workup showed he was dehydrated so the patient was given IV fluid. His CT scan was unremarkable for acute stroke. Carotid Doppler is unremarkable. MRI of the brain is negative. CT angio is negative. The next day, his mental status was almost back to the normal. PHYSICAL EXAMINATION: GENERAL: He is awake and alert, communicative, started to eat. VITAL SIGNS: He is afebrile, pulse 88, respiration 18 and blood pressure 151/76. LUNGS: Bilateral fair airflow. No rhonchi or crackle. HEART: S1, S2 audible. ABDOMEN: Soft and nontender. No rebound. No guarding. NEUROLOGIC: The patient is awake, alert, and able to communicate. LABORATORY EXAM: There is no new lab available today; however, his workup including MRI, CT of the brain and blood sugar are remarkable. Digoxin level 0.4. ASSESSMENT: 1. Status post altered mental status, back to baseline. 2. History of hypertension. 3. Mild dementia. 4. Chronic atrial fibrillation. 5. History of cerebrovascular accident with right-sided weakness in remote past. PLAN: Currently the patient is on aspirin, Cardizem, Eliquis, and Flomax we will continue all that. He has been started on p.o. Ventin, and the patient will be discharged and sent to [facility] today, where he will receive physical therapy. We will followup outpatient when he is discharged. Merlin Atkinson MD
== END 2018-09-05 16:43 | DRG 640 ==
LOC: ED 09:00 → ERH 11:34 → 2RNO 14:12 → 5RSO 09-05 00:41
PROVIDERS: ADMIT Internal Medicine; ATTEND Internal Medicine
DX: E86.0 Dehydration (principal); G92 Toxic encephalopathy; N39.0 Urinary tract infection, site not specified; I69.351 Hemiplegia and hemiparesis following cerebral infarction affecting right dominant side; I42.9 Cardiomyopathy, unspecified; R41.82 Altered mental status, unspecified; I48.2 Chronic atrial fibrillation; I50.9 Heart failure, unspecified; I11.0 Hypertensive heart disease with heart failure; F03.90 Unspecified dementia, unspecified severity, without behavioral disturbance, psychotic disturbance, mood disturbance, and anxiety; R47.1 Dysarthria and anarthria; R26.2 Difficulty in walking, not elsewhere classified; R29.810 Facial weakness; R13.12 Dysphagia, oropharyngeal phase; E78.00 Pure hypercholesterolemia, unspecified; E78.5 Hyperlipidemia, unspecified; I73.9 Peripheral vascular disease, unspecified; K21.9 Gastro-esophageal reflux disease without esophagitis; N28.9 Disorder of kidney and ureter, unspecified; N40.0 Benign prostatic hyperplasia without lower urinary tract symptoms; R29.710 NIHSS score 10; Z99.81 Dependence on supplemental oxygen